=== PATIENT | male | born 1980 | race Caucasian/White ===

== ENCOUNTER 2021-03-05 09:18 | Emergency (ER) | payer OTHER ==
[~2021-03-05] VITALS: Ht 182.9 cm; Wt 152.2 kg
[2021-03-05] MEDS ORDERED: ONDANSETRON PF 4 MG/2 ML VIAL. IV ONE (09:30)
[2021-03-05] MEDS ORDERED: IV NORMAL SALINE 1000ML BAG 1,000 ML IV ONE ×2 (09:30→10:15)
[2021-03-05 09:37] LABS: BASO # 0.1 x10^3/uL (0.0-0.2); BASO % 1 % (0-3); EOS # 0.2 x10^3/uL (0.0-0.7); EOS % 2 % (0-3); HEMATOCRIT 45.6 % (39.0-53.0); HEMOGLOBIN 16.2 g/dL (13.0-17.5); LYMPH # 1.5 x10^3/uL (1.0-4.8); LYMPH % 15 % (24-48); MEAN CORPUSCULAR HEMOGLOBIN 36 pg (25-35); MEAN CORPUSCULAR HGB CONC 35 g/dL (31-37); MEAN CORPUSCULAR VOLUME 101 fL (79-100); MONO # 0.9 x10^3/uL (0.0-1.1); MONO % 10 % (0-9); NEUT # 7.1 x10^3/uL (1.8-7.7); NEUT % 73 % (31-73); PLATELET COUNT 222 x10^3/uL (140-400); RED BLOOD COUNT 4.51 x10^6/uL (4.30-5.70); RED CELL DISTRIBUTION WIDTH 12.4 % (11.5-14.5); WHITE BLOOD COUNT 9.7 x10^3/uL (4.0-11.0)
--- NOTE | 2021-03-05 09:43 | ED.ADGEN ---
Past Medical History Past Medical History: Depression Additional Past Medical Histor: Obesity Additional Past Surgical Histo: R bicep repair, hernia repair Smoking Status: Never Smoker Alcohol Use: Occasionally Drug Use: None Social History Narrative: Lives with his father, going for divorce General Adult EDM: Chief Complaint: DIZZY/LIGHT HEADED HPI: HPI: Patient is a 40 year old male who presents to the emergency department with complaints of nausea and vomiting this morning. Patient reports he had been feeling nauseated this morning and had just come down to the OR when all of a sudden he began forcefully vomiting. Patient states he vomited multiple times until he was dry heaving. He denies any chest pain, shortness of breath, headache, vision changes, abdominal pain, diarrhea, fever, body aches, or fatigue. Patient reports that he has had some decreased sensation in his feet for several months. He does not have a primary care doctor. Patient reports noticing increased thirst and urination recently he denies any polyphagia. Patient reports that he is currently going through a divorce and living with his father, he states that his eating habits have become more healthy since he moved in with his father recently. Patient states he does not have a primary care doctor, he does take medication for depression but denies taking medication for any other health problems. In the past he has had some intermittent high blood pressure but has never taken anything for it. He denies any previous diagnosis of diabetes. The patient currently denies any pain. Review of Systems: Review of Systems: Complete ROS is negative unless otherwise noted in HPI. Current Medications: Current Medications Medications (Trade) Dose Ordered Sig/Priti Start Time Stop Time Status Last Admin Dose Admin Hydralazine HCl (Apresoline Inj) 10 mg 1X ONCE 03/05/21 09:45 03/05/21 09:46 DC 03/05/21 10:15 10 MG Labetalol HCl (Normodyne Iv Push) 10 mg 1X ONCE 03/05/21 12:30 03/05/21 12:31 DC 03/05/21 12:34 10 MG Ondansetron HCl (Zofran) 4 mg 1X ONCE 03/05/21 09:30 03/05/21 09:34 DC 03/05/21 09:35 4 MG Sodium Chloride 1,000 ml @ 1,000 mls/hr 1X ONCE 03/05/21 10:15 03/05/21 11:14 DC 03/05/21 10:14 1,000 MLS/HR Allergies: Allergies: Allergies Coded Allergies Type Severity Reaction Last Updated Verified Sulfa (Sulfonamide Antibiotics) Allergy Intermediate 03/05/21 Yes Physical Exam: PE: See Above Constitutional: Well developed, well nourished, no acute distress, non-toxic appearance, obese. [] HENT: Normocephalic, atraumatic, bilateral external ears normal, nose normal. [] Eyes: PERRLA, EOMI, conjunctiva normal, no discharge. [] Neck: Normal range of motion, no stridor. [] Cardiovascular:Heart rate regular tachycardic rhythm, no murmur Lungs & Thorax: Respirations even and unlabored, no retractions, no respiratory distress, lungs CTA Abdomen: soft, no tenderness, no palpable mass, no pulsatile Skin: Warm, dry, no erythema, no rash; L great toe: wound to plantar surface with cracked yellow skin, no drainage, no surrounding redness or warmth [] Extremities: No cyanosis, ROM intact, no edema. [] Neurologic: Alert and oriented X 3, normal motor, no focal deficits noted. [] Psychologic: Affect normal, judgement normal, mood normal. [] Current Patient Data: Labs: Laboratory Tests Test 03/05/21 08:57 03/05/21 09:25 03/05/21 10:13 03/05/21 11:08 Glucose (Fingerstick) 416 mg/dL (70-99) H 340 mg/dL (70-99) H 321 mg/dL (70-99) H White Blood Count 9.7 x10^3/uL (4.0-11.0) Red Blood Count 4.51 x10^6/uL (4.30-5.70) Hemoglobin 16.2 g/dL (13.0-17.5) Hematocrit 45.6 % (39.0-53.0) Mean Corpuscular Volume 101 fL (79-100) H Mean Corpuscular Hemoglobin 36 pg (25-35) H Mean Corpuscular Hemoglobin Concent 35 g/dL (31-37) Red Cell Distribution Width 12.4 % (11.5-14.5) Platelet Count 222 x10^3/uL (140-400) Neutrophils (%) (Auto) 73 % (31-73) Lymphocytes (%) (Auto) 15 % (24-48) L Monocytes (%) (Auto) 10 % (0-9) H Eosinophils (%) (Auto) 2 % (0-3) Basophils (%) (Auto) 1 % (0-3) Neutrophils # (Auto) 7.1 x10^3/uL (1.8-7.7) Lymphocytes # (Auto) 1.5 x10^3/uL (1.0-4.8) Monocytes # (Auto) 0.9 x10^3/uL (0.0-1.1) Eosinophils # (Auto) 0.2 x10^3/uL (0.0-0.7) Basophils # (Auto) 0.1 x10^3/uL (0.0-0.2) Sodium Level 135 mmol/L (136-145) L Potassium Level 4.3 mmol/L (3.5-5.1) Chloride Level 98 mmol/L (98-107) Carbon Dioxide Level 25 mmol/L (21-32) Anion Gap 12 (6-14) Blood Urea Nitrogen 11 mg/dL (8-26) Creatinine 1.1 mg/dL (0.7-1.3) Estimated GFR (Cockcroft-Gault) 73.4 BUN/Creatinine Ratio 10 (6-20) Glucose Level 384 mg/dL (70-99) H Calcium Level 9.0 mg/dL (8.5-10.1) Magnesium Level 1.9 mg/dL (1.8-2.4) Total Bilirubin 0.5 mg/dL (0.2-1.0) Aspartate Amino Transferase (AST) 65 U/L (15-37) H Alanine Aminotransferase (ALT) 96 U/L (16-63) H Alkaline Phosphatase 71 U/L (46-116) Creatine Kinase 118 U/L (39-308) Creatine Kinase MB (Mass) 1.1 ng/mL (0.0-3.6) Creatine Kinase MB Relative Index 0.9 % (0-4) Troponin I Quantitative < 0.017 ng/mL (0.000-0.055) Total Protein 7.6 g/dL (6.4-8.2) Albumin 3.3 g/dL (3.4-5.0) L Albumin/Globulin Ratio 0.8 (1.0-1.7) L Lipase 150 U/L (73-393) Acetone Level Neg (NEG) Test 03/05/21 12:28 Glucose (Fingerstick) 284 mg/dL (70-99) H Laboratory Tests 03/05/21 09:25 Laboratory Tests 03/05/21 09:25 Vital Signs: Vital Signs Date Time Temp Pulse Resp B/P (MAP) Pulse Ox O2 Delivery O2 Flow Rate FiO2 03/05/21 13:13 97 161/99 (119) 97 Room Air 03/05/21 09:18 98.5 24 98.5 EKG: EK-sinus tachycardia, rate 113, leftward axis, no STEMI, read by myself and Dr. Wan [] Heart Score: C/O Chest Pain: No Risk Scores: Score 0 - 3: 2.5% MACE over next 6 weeks - Discharge Home Score 4 - 6: 20.3% MACE over next 6 weeks - Admit for Clinical Observation Score 7 - 10: 72.7% MACE over next 6 weeks - Early Invasive Strategies Radiology/Procedures: Radiology/Procedures: PROCEDURE: CHEST AP ONLY INDICATION: Reason: chest pain / Spl. Instructions: / History: COMPARISON: None. FINDINGS: Single view of chest obtained. Cardiomediastinal silhouette is unremarkable. Linear opacity left lung base could be secondary to atelectasis. No evidence of pneumothorax. IMPRESSION: * Linear atelectasis at the left lung base without evidence of pneumothorax. Electronically signed by: Emery Hernandez MD (03/05/2021 10:09 AM) [id number][] Course & Med Decision Making: Course & Med Decision Making Pertinent Labs and Imaging studies reviewed. (See chart for details) Patient is a 38-year-old male who presents emergency department for evaluation of sudden onset of nausea and vomiting. Patient was needed blood sugar of 416 on arrival. Work-up included labs, chest x-ray, EKG. CBC is unremarkable; CMP revealed a blood glucose of 384, sodium 135, AST 65, ALT of 96 no elevation in anion gap, acetone was negative. They are unable to collect a urine specimen in the emergency department. Patient's blood pressure history of 10 mg of hydralazine with little response so 10 mg labetalol was given. The patient's blood pressure decreased and his heart rate dropped into the 90s. Patient received a total of 2 L of normal saline in the emergency department. His last blood sugar check was 284. I put in a consult for the hospitalist to evaluate the patient. 1240- Dr. Guerrero at bedside to evaluate patient. 1300- Per Dr. Guerrero I will prescribe 1000 mg of metformin BID and amlodipine 10 mg PO at bedtime to the patient. 1315-patient called his primary care doctor and establish an appointment for himself to be seen in the office tomorrow morning at 1140. I encouraged the patient to take his medications as prescribed, check his blood sugars and blood pressures regularly, follow the diet instructions provided and follow-up with his primary care doctor tomorrow as planned. I also instructed the patient to follow-up with wound care for further evaluation of the wound on the bottom of his left great toe. Patient was instructed to return to the ER if symptoms worsened or fever develop. Patient verbalized an understanding of home care, medications, follow-up, and return to ED instructions and was in agreement with the plan of care. Telmaon Disclaimer: Anay Disclaimer: This electronic medical record was generated, in whole or in part, using a voice recognition dictation system. Departure Departure Impression: Primary Impression: Hyperglycemia Additional Impressions: Type 2 diabetes mellitus Hypertension Unspecified open wound of left great toe without damage to nail, initial en counter Disposition: HOME / SELF CARE / HOMELESS Condition: STABLE Referrals: DEL DAVID (PCP) Patient Instructions: Diabetes Meal Planning Guide, Diabetes and Foot Care, Form - Daily Diabetes Record, Hypertension, [id number], Type 2 Diabetes Mellitus, Adult, [id number], Wound Care, [id number] Additional Instructions: Fill the prescriptions and use them as directed. Check your blood sugar before meals and at bedtime, purchase a glucometer for personal use. Follow the diet instructions provided. Follow up with your primary care doctor in 1-2 days. Follow up with wound care, Dr. Chauhan, for further evaluation of your foot wound. Return to the ER if symptoms worsen or fever develops. Scripts Amlodipine Besylate (AMLODIPINE BESYLATE) 10 Mg Tablet 10 MG PO HS for 30 Days, #30 TAB 1 Refill Prov: BERNADETTE RANDOLPH APRN 03/05/21 Metformin Hcl (METFORMIN HCL) 1,000 Mg Tablet 1000 MG PO BIDWMEALS for 30 Days, #60 TAB 1 Refill Prov: BERNADETTE RANDOLPH APRN 03/05/21 Attending Co-Sign The patient was seen and interviewed as well as examined at the bedside. The chart was reviewed. The case was discussed. Agree with the plan of care. Problem Qualifiers Additional Impressions: Type 2 diabetes mellitus Diabetes mellitus fpc insulin use: without land law examiner use Diabetes mellitus complication status: with hyperglycemia Qualified Codes: E11.65 - Type 2 diabetes mellitus with hyperglycemia Hypertension Hypertension type: essential hypertension Qualified Codes: I10 - Essential (primary) hypertension BERNADETTE RANDOLPH APRN Mar 05, 2021 09:43 EDUARDO WAN DO Mar 05, 2021 15:11
[2021-03-05] MEDS ORDERED: hydrALAZINE 20 MG/ML VIAL. IVP ONE (09:45)
[2021-03-05 09:52] LABS: CREATININE 1.1 mg/dL (0.7-1.3); GFR 73.4; POTASSIUM 4.3 mmol/L (3.5-5.1)
[2021-03-05 09:58] LABS: ALBUMIN 3.3 g/dL (3.4-5.0); ALBUMIN/GLOBULIN RATIO 0.8 (1.0-1.7); MAGNESIUM 1.9 mg/dL (1.8-2.4); TOTAL BILIRUBIN 0.5 mg/dL (0.2-1.0); TOTAL PROTEIN 7.6 g/dL (6.4-8.2)
--- NOTE | 2021-03-05 10:12 | RAD ---
INDICATION: Reason: chest pain / Spl. Instructions: / History: COMPARISON: None. FINDINGS: Single view of chest obtained. Cardiomediastinal silhouette is unremarkable. Linear opacity left lung base could be secondary to atelectasis. No evidence of pneumothorax. IMPRESSION: * Linear atelectasis at the left lung base without evidence of pneumothorax. Electronically signed by: Emery Hernandez MD (03/05/2021 10:09 AM) [id number]
[2021-03-05] MEDS ORDERED: LABETALOL 20 MG/4 ML DISP.SYRIN. IVP ONE (12:30)
[2021-03-05] MEDS ORDERED: AMLO-187 PO (13:00)
[2021-03-05] MEDS ORDERED: METF10007 PO (13:00)
[2021-03-05 13:13] VITALS: BP 161/99
--- NOTE | 2021-03-05 13:59 | EKG ---
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
--- NOTE | 2021-03-05 15:35 | PDOC2 ---
Date of Service: DATE: 03/05/21 TIME: 15:32 Chief Complaint: Chief Complain: Nausea vomiting History of Present Illness: HPI: Past Medical History: Depression Additional Past Medical Histor: Obesity Additional Past Surgical Histo: R bicep repair, hernia repair Smoking Status: Never Smoker Alcohol Use: Occasionally Drug Use: None Social History Narrative: Lives with his father, going for divorce Patient is a 40 year old male who presents to the emergency department with complaints of nausea and vomiting this morning. Patient reports he had been feeling nauseated this morning and had just come down to the OR when all of a sudden he began forcefully vomiting. Patient states he vomited multiple times until he was dry heaving. He denies any chest pain, shortness of breath, headache, vision changes, abdominal pain, diarrhea, fever, body aches, or fatigue. Patient reports that he has had some decreased sensation in his feet for several months. He does not have a primary care doctor. Patient reports noticing increased thirst and urination recently he denies any polyphagia. Patient reports that he is currently going through a divorce and living with his father, he states that his eating habits have become more healthy since he moved in with his father recently. Patient states he does not have a primary care doctor, he does take medication for depression but denies taking medication for any other health problems. In the past he has had some intermittent high blood pressure but has never taken anything for it. He denies any previous diagnosis of diabetes. The patient currently denies any pain. Past Medical/Surgical History: PMH/PSH: Past Medical History: Depression, Obesity, R bicep repair, hernia repair Allergies: Allergies: Coded Allergies: Sulfa (Sulfonamide Antibiotics) (Verified Allergy, Intermediate, 03/05/21) Family History: Family History: Reviewed with no relevant findings Social History: Social Hisoty: Smoking Status: Never Smoker Alcohol Use: Occasionally Drug Use: None Social History Narrative: Lives with his father, going for divorce Current Medications: Current Medications Current Medications Sodium Chloride 1,000 ml @ 1,000 mls/hr 1X ONCE IV Last administered on 03/05/21at 09:36; Start 03/05/21 at 09:30; Stop 03/05/21 at 10:29; Status DC Ondansetron HCl (Zofran) 4 mg 1X ONCE IV Last administered on 03/05/21at 09:35; Start 03/05/21 at 09:30; Stop 03/05/21 at 09:34; Status DC Hydralazine HCl (Apresoline Inj) 10 mg 1X ONCE IVP Last administered on 03/05/21at 10:15; Start 03/05/21 at 09:45; Stop 03/05/21 at 09:46; Status DC Sodium Chloride 1,000 ml @ 1,000 mls/hr 1X ONCE IV Last administered on 03/05/21at 10:14; Start 03/05/21 at 10:15; Stop 03/05/21 at 11:14; Status DC Labetalol HCl (Normodyne Iv Push) 10 mg 1X ONCE IVP Last administered on 03/05/21at 12:34; Start 03/05/21 at 12:30; Stop 03/05/21 at 12:31; Status DC Active Scripts Active Amlodipine Besylate 10 Mg Tablet 10 Mg PO HS 30 Days Metformin Hcl 1,000 Mg Tablet 1,000 Mg PO BIDWMEALS 30 Days Reported No Known Medications Prior To Admisstion (Info) Each 1 Each ROS: Review of Systems Review of System REVIEW OF SYSTEMS: GENERAL: Denies weakness SKIN: No bruising, hair changes or rashes. EYES: No blurred, double or loss of vision. NOSE AND THROAT: No history of nosebleeds, hoarseness or sore throat. HEART: No history of palpitations, chest pain or shortness of breath on exertion. LUNGS: Denies cough, hemoptysis, wheezing or shortness of breath. GASTROINTESTINAL: Denies changes in appetite, nausea, vomiting, diarrhea or constipation. GENITOURINARY: No history of frequency, urgency, hesitancy or nocturia. NEUROLOGIC: Denies history of numbness, tingling, or tremor. PSYCHIATRIC: No history of panic, anxiety or depression. ENDOCRINE: No history of heat or cold intolerance, polyuria or polydipsia. EXTREMITIES: Denies joint pain, pain on walking or stiffness. Physical Exam: Vital Signs: Vital Signs Date Time Temp Pulse Resp B/P (MAP) Pulse Ox O2 Delivery O2 Flow Rate FiO2 03/05/21 13:13 97 161/99 (119) 97 Room Air 03/05/21 09:18 98.5 24 98.5 Physcial Exam: GEN: No apparent distress. Alert and oriented HEENT: Normal cephalic, atraumatic, external auditory canals are patent EYES: Extraocular muscles are intact, pupil are equally round and reactive to light and accommodation MUSCULOSKELETAL: Well developed , well nourished, good range of motion ENDOCRINE: No thyromegaly was palpated LYMPHATICS: No cervical chain or axillary nodes were noted HEMATOPOIETIC: No bruising NECK: Supple, no JVD, no thyromegaly was noted LUNGS: Clear to auscultation in all lung dumont without rhonchi or wheezing HEART: RRR, S!, S2 present. Peripheral pulses intact, no obvious murmurs noted ABDOMEN: Soft, nontender. Positive bowel sounds, no organomegaly, normal bowel sounds EXTREMITIES: Without clubbing, cyanosis, or edema. Pedal pulses intact. Negative Homans sign NEUROLOGIC: Normal speech and tone. A&O x 3, moves all extremities, no obvious focal deficits PSYCHIATRIC: Normal affect, normal mood. Stable SKIN: No ulcerations or rashes, good skin turgor, no jaundice VASCULAR: Good capillary refill, neurovascular bundle appears to be intact Labs: Labs: Laboratory Tests Test 03/05/21 08:57 03/05/21 09:25 03/05/21 10:13 03/05/21 11:08 Glucose (Fingerstick) 416 mg/dL (70-99) 340 mg/dL (70-99) 321 mg/dL (70-99) White Blood Count 9.7 x10^3/uL (4.0-11.0) Red Blood Count 4.51 x10^6/uL (4.30-5.70) Hemoglobin 16.2 g/dL (13.0-17.5) Hematocrit 45.6 % (39.0-53.0) Mean Corpuscular Volume 101 fL (79-100) Mean Corpuscular Hemoglobin 36 pg (25-35) Mean Corpuscular Hemoglobin Concent 35 g/dL (31-37) Red Cell Distribution Width 12.4 % (11.5-14.5) Platelet Count 222 x10^3/uL (140-400) Neutrophils (%) (Auto) 73 % (31-73) Lymphocytes (%) (Auto) 15 % (24-48) Monocytes (%) (Auto) 10 % (0-9) Eosinophils (%) (Auto) 2 % (0-3) Basophils (%) (Auto) 1 % (0-3) Neutrophils # (Auto) 7.1 x10^3/uL (1.8-7.7) Lymphocytes # (Auto) 1.5 x10^3/uL (1.0-4.8) Monocytes # (Auto) 0.9 x10^3/uL (0.0-1.1) Eosinophils # (Auto) 0.2 x10^3/uL (0.0-0.7) Basophils # (Auto) 0.1 x10^3/uL (0.0-0.2) Sodium Level 135 mmol/L (136-145) Potassium Level 4.3 mmol/L (3.5-5.1) Chloride Level 98 mmol/L (98-107) Carbon Dioxide Level 25 mmol/L (21-32) Anion Gap 12 (6-14) Blood Urea Nitrogen 11 mg/dL (8-26) Creatinine 1.1 mg/dL (0.7-1.3) Estimated GFR (Cockcroft-Gault) 73.4 BUN/Creatinine Ratio 10 (6-20) Glucose Level 384 mg/dL (70-99) Calcium Level 9.0 mg/dL (8.5-10.1) Magnesium Level 1.9 mg/dL (1.8-2.4) Total Bilirubin 0.5 mg/dL (0.2-1.0) Aspartate Amino Transf (AST/SGOT) 65 U/L (15-37) Alanine Aminotransferase (ALT/SGPT) 96 U/L (16-63) Alkaline Phosphatase 71 U/L (46-116) Creatine Kinase 118 U/L (39-308) Creatine Kinase MB (Mass) 1.1 ng/mL (0.0-3.6) Creatine Kinase MB Relative Index 0.9 % (0-4) Troponin I Quantitative < 0.017 ng/mL (0.000-0.055) Total Protein 7.6 g/dL (6.4-8.2) Albumin 3.3 g/dL (3.4-5.0) Albumin/Globulin Ratio 0.8 (1.0-1.7) Lipase 150 U/L (73-393) Acetone Level Neg (NEG) Test 03/05/21 12:28 Glucose (Fingerstick) 284 mg/dL (70-99) Laboratory Tests Test 03/05/21 08:57 03/05/21 09:25 03/05/21 10:13 03/05/21 11:08 Glucose (Fingerstick) 416 mg/dL (70-99) 340 mg/dL (70-99) 321 mg/dL (70-99) White Blood Count 9.7 x10^3/uL (4.0-11.0) Red Blood Count 4.51 x10^6/uL (4.30-5.70) Hemoglobin 16.2 g/dL (13.0-17.5) Hematocrit 45.6 % (39.0-53.0) Mean Corpuscular Volume 101 fL (79-100) Mean Corpuscular Hemoglobin 36 pg (25-35) Mean Corpuscular Hemoglobin Concent 35 g/dL (31-37) Red Cell Distribution Width 12.4 % (11.5-14.5) Platelet Count 222 x10^3/uL (140-400) Neutrophils (%) (Auto) 73 % (31-73) Lymphocytes (%) (Auto) 15 % (24-48) Monocytes (%) (Auto) 10 % (0-9) Eosinophils (%) (Auto) 2 % (0-3) Basophils (%) (Auto) 1 % (0-3) Neutrophils # (Auto) 7.1 x10^3/uL (1.8-7.7) Lymphocytes # (Auto) 1.5 x10^3/uL (1.0-4.8) Monocytes # (Auto) 0.9 x10^3/uL (0.0-1.1) Eosinophils # (Auto) 0.2 x10^3/uL (0.0-0.7) Basophils # (Auto) 0.1 x10^3/uL (0.0-0.2) Sodium Level 135 mmol/L (136-145) Potassium Level 4.3 mmol/L (3.5-5.1) Chloride Level 98 mmol/L (98-107) Carbon Dioxide Level 25 mmol/L (21-32) Anion Gap 12 (6-14) Blood Urea Nitrogen 11 mg/dL (8-26) Creatinine 1.1 mg/dL (0.7-1.3) Estimated GFR (Cockcroft-Gault) 73.4 BUN/Creatinine Ratio 10 (6-20) Glucose Level 384 mg/dL (70-99) Calcium Level 9.0 mg/dL (8.5-10.1) Magnesium Level 1.9 mg/dL (1.8-2.4) Total Bilirubin 0.5 mg/dL (0.2-1.0) Aspartate Amino Transf (AST/SGOT) 65 U/L (15-37) Alanine Aminotransferase (ALT/SGPT) 96 U/L (16-63) Alkaline Phosphatase 71 U/L (46-116) Creatine Kinase 118 U/L (39-308) Creatine Kinase MB (Mass) 1.1 ng/mL (0.0-3.6) Creatine Kinase MB Relative Index 0.9 % (0-4) Troponin I Quantitative < 0.017 ng/mL (0.000-0.055) Total Protein 7.6 g/dL (6.4-8.2) Albumin 3.3 g/dL (3.4-5.0) Albumin/Globulin Ratio 0.8 (1.0-1.7) Lipase 150 U/L (73-393) Acetone Level Neg (NEG) Test 03/05/21 12:28 Glucose (Fingerstick) 284 mg/dL (70-99) Images: Images No recent images to review Assessment/Plan Assessment/Plan New onset diabetes, uncontrolled and undiagnosed Hypertensive urgency Hyperglycemia Peripheral neuropathy Left great toe wound, chronic Macrocytosis Mild transaminitis We will have patient have close follow-up with his PCP for management of his diabetes and hypertension. Will start patient on Metformin 1000 twice daily and amlodipine 10 mg at bedtime. Needs close follow-up for wound care. SEGUNDO MELÉNDEZ MD Mar 05, 2021 15:35
== END 2021-03-05 13:40 | disposition home or self-care (01) ==
LOC: ER 09:18
DX: S91.102A Unspecified open wound of left great toe without damage to nail, initial encounter (principal); E11.65 Type 2 diabetes mellitus with hyperglycemia; I10 Essential (primary) hypertension; Z79.4 Long term (current) use of insulin; Z88.2 Allergy status to sulfonamides; X58.XXXA Exposure to other specified factors, initial encounter; Y93.89 Activity, other specified; Y92.89 Other specified places as the place of occurrence of the external cause; Y99.8 Other external cause status
CPT/HCPCS: 36415; 71045; 80053; 82010; 82553; 82962; 83036; 83690; 83735; 84484; 85025; 93005; 96361; 96374; 96375; 99285; J0360; J2405; J3490; J7030

== ENCOUNTER → 2021-03-21 | Outpatient (CLI) | payer OTHER ==
[2021-03-05 13:13] VITALS: BP 161/99
[~2021-03-21] MED LIST: AMLO-187 PO; METF10007 PO
--- NOTE | 2021-03-21 08:13 | RAD ---
EXAM: Lower extremity arterial Doppler sonogram with ankle-brachial indices (ARLENE). HISTORY: Nonhealing ulcer of the left great toe. Peripheral vascular disease. Atherosclerosis. TECHNIQUE: Doppler sonographic evaluation of the lower extremities was performed and pressure reading s were assessed. FINDINGS: Right brachial pressure: 144 mmHg Left brachial pressure: 145 mmHg Right ankle pressure (dorsalis pedis): 166 mmHg Right ankle pressure (posterior tibial): 156 mmHg Right ARLENE: 1.1 Left ankle pressure (posterior tibial): 159 mmHg Left ankle pressure (dorsalis pedis): 158 mmHg Left ARLENE: 1.1 There are normal triphasic waveforms throughout the left lower extremity arteries. There is mild rela tive elevation of the peak systolic velocity within the distal left posterior tibial artery. However, this remains within normal limits. IMPRESSION: 1. Normal ankle-brachial indices. 2. No evidence of severe stenosis or occlusion involving the left lower extremity arteries. Electronically signed by: Beckie Aguilera MD (03/21/2021 8:10 AM) [id number]
== END ==
LOC: US 06:41
PROVIDERS: ATTEND Preventive Medicine Undersea and Hyperbaric Medicine
DX: L97.529 Non-pressure chronic ulcer of other part of left foot with unspecified severity (principal)
CPT/HCPCS: 93922; 93926

== ENCOUNTER 2021-12-31 08:50 | Inpatient (IN) | payer OTHER ==
[~2021-12-31] VITALS: Ht 182.9 cm; Wt 157.6 kg
[2021-12-31] MEDS ORDERED: ALPR0.5T PO (10:09)
[2021-12-31 10:45] VITALS: BP 137/86
--- NOTE | 2021-12-31 10:55 | PDOC2 ---
CONSULT Date of Service Date of Service DATE: 12/31/21 TIME: 10:39 Reason for Consult Reason for Consult: DFU Referring Physician Referring Physician: Dr. Guerrero Identification/Chief Complaint Chief Complaint DFU Source Source: Patient History of Present Illness Reason for Visit: This a pleasant 41-year-old male with history of diabetes, controlled at home with Metformin based on home medication list. He was sent over here by wound care. His last A1c was 10.0 in February 2021. He presents with a left great toe diabetic foot ulcer. He reports its been present for approximately 2 months, started as a punctate blood blister, and has progressively worsened, especially after his recent travel to [place] with lots of walking and where he went swimming 2 weeks ago, at which point his toe became more red and swollen and macerated. He has not had much pain until [facility] visit today where they probed the wound. RN mentioned they think they probed to bone. He does regularly follow at wound care center. He denies having any purulent drainage, he does report some serous drainage. He reports associated swelling to his left foot and lower leg. He had a normal duplex in March 2021 with normal ABIs. He denies any claudication symptoms. He denies smoking history. He denies any prior foot surgeries or circulation issues. He reports he had a wound on same toe last year that healed with wound care. He does have diabetic shoes he wears regularly. Past Medical History Past Medical History Diabetes Current Medications Current Medications Current Medications Morphine Sulfate (Morphine Sulfate) 2 mg PRN Q2HR PRN IV PAIN; Start 12/31/21 at 10:00 Active Scripts Active Amlodipine Besylate 10 Mg Tablet 10 Mg PO HS 30 Days Metformin Hcl 1,000 Mg Tablet 1,000 Mg PO BIDWMEALS 30 Days Reported Xanax (Alprazolam) 0.5 Mg Tablet 1 Tab PO DAILY PRN No Known Medications Prior To Admisstion (Info) Each 1 Each MC Allergies Allergies: Coded Allergies: Sulfa (Sulfonamide Antibiotics) (Verified Allergy, Intermediate, 03/05/21) ROS General: No: Chills (Fever) Gastrointestinal: No Nausea, No Vomiting, No Diarrhea Musculoskeletal: Yes Gait Disturbance, Yes Pain In: (L great toe) Skin: Yes Dry Skin, Yes Rash, Yes Skin Lesion Changes Physical Exam General: Alert, Oriented X3, Cooperative, No acute distress Lungs: Normal air movement (room air, no distress) Heart: Regular rate Extremities: Normal pulses (Normal DP and PT bilaterally. ), Other (No right foot wounds or erythema. Left foot with ecchymosis to nail bed of second toe, no drianage. First toe with distal part all macerated circumferentially with boggy tissue medially and plantar ulcer with clean wound bed on plantar surface. There is no drainage extracted. Attempted to probe ulcer and under nail bed but this was too painful for pt and not tolerated. There is no fluctuance or draiange, there is erythema extending to forefoot. He has 1+swelling RLE) Skin: Other (L great toe wound as in described above. ) Neuro: Normal speech, Strength at 5/5 X4 ext Psych/Mental Status: Mental status NL, Mood NL Labs Labs None to review - have been ordered. Images Images Reviewed art duplex and ARLENE's from 03/2021 Assessment/Plan Assessment/Plan Diabetes, uncontrolled DFU, left great toe Pleasant 41-year-old diabetic male with rt great toe ulcer x2 months with recent flare up. Will order some labs, consult ID for abx managment and get MRI. The wound does not show any signs indicating need for urgent surgical intervention. I discussed with him concern for osteomyelitis and treatment options. He understands importance of offloading and better diabetes control for wound healing. He has palpable pedal pulses and had normal duplex in March 2021, therefore do not think further arterial imaging is necessary at this time. Will await MRI results for further surgical decision making. SHADE KRISHNAN Dec 31, 2021 10:55
[2021-12-31] MEDS: MORPHINE SULFATE 2 MG/ML INJ. IV PRN ×2 (11:00→17:51)
[2021-12-31 12:09] LABS: BASO # 0.1 x10^3/uL (0.0-0.2); BASO % 1 % (0-3); EOS # 0.1 x10^3/uL (0.0-0.7); EOS % 1 % (0-3); HEMATOCRIT 43.1 % (39.0-53.0); HEMOGLOBIN 15.2 g/dL (13.0-17.5); LYMPH # 1.4 x10^3/uL (1.0-4.8); LYMPH % 11 % (24-48); MEAN CORPUSCULAR HEMOGLOBIN 36 pg (25-35); MEAN CORPUSCULAR HGB CONC 35 g/dL (31-37); MEAN CORPUSCULAR VOLUME 102 fL (79-100); MONO # 1.9 x10^3/uL (0.0-1.1); MONO % 16 % (0-9); NEUT # 8.9 x10^3/uL (1.8-7.7); NEUT % 72 % (31-73); PLATELET COUNT 285 x10^3/uL (140-400); RED BLOOD COUNT 4.23 x10^6/uL (4.30-5.70); RED CELL DISTRIBUTION WIDTH 12.9 % (11.5-14.5); WHITE BLOOD COUNT 12.5 x10^3/uL (4.0-11.0)
[2021-12-31 12:19] LABS: CALCIUM 8.9 mg/dL (8.5-10.1); GFR 81.6; POTASSIUM 3.7 mmol/L (3.5-5.1)
[2021-12-31] MEDS ORDERED: GADOTERATE 7.5 MMOL/15ML VIAL. IVP ONE (12:30)
[2021-12-31] MEDS ORDERED: MORPHINE SULFATE 2 MG/ML INJ. IV PRN (13:45)
[2021-12-31] MEDS ORDERED: LORazepam 0.5 MG TABLET PO PRN (13:45)
[2021-12-31] MEDS ORDERED: diphenhydrAMINE HCL 25 MG CAPSULE PO PRN ×2 (13:45)
[2021-12-31] MEDS ORDERED: DOCUSATE SODIUM 100 MG CAPSULE. PO PRN (13:45)
[2021-12-31] MEDS ORDERED: SENNOSIDES 8.6 MG TABLET PO PRN (13:45)
[2021-12-31] MEDS ORDERED: diphenhydrAMINE 50 MG/ML VIAL IVP PRN (13:45)
[2021-12-31] MEDS ORDERED: oxyCODONE/APAP 5/325 1 TAB TABLET PO PRN (13:45)
[2021-12-31] MEDS ORDERED: PROCHLORPERAZINE 10 MG/2 ML VIAL. IV PRN (13:45)
[2021-12-31] MEDS ORDERED: ONDANSETRON PF 4 MG/2 ML VIAL. IVP PRN (13:45)
[2021-12-31] MEDS ORDERED: ZOLPIDEM 5 MG TABLET. PO PRN (13:45)
[2021-12-31] MEDS ORDERED: ACETAMINOPHEN 325 MG TABLET. PO PRN (13:45)
[2021-12-31] MEDS ORDERED: DEXTROSE 50% 25 GM / 50ML DISP.SYRIN. IV PRN (13:45)
--- NOTE | 2021-12-31 13:48 | PDOC1 ---
History and Physical Date of Service: DOS: DATE: 12/31/21 TIME: 13:38 Chief Complaint: Chief Complain: Diabetic foot ulcer History of Present Illness: HPI: Patient is a 41-year-old male with past medical history of diabetes myelitis on Metformin who was admitted from wound clinic due to left first digit diabetic foot ulcer. Last hemoglobin A1c in February 2021 was 10. Patient had a foot ulcer a year ago that healed well but approximately 2 months ago patient developed a blister and progressively worsened. Apparently he did go to [place] and where he did a lot of walking and actually went swimming. At this point the wound became more red and swollen and actually macerated. The wound was probed and there was suspicion that they were touching bone. Denies any fevers, nausea vomiting, chest pain, dysuria, smoking, claudication symptoms, purulent drainage or active bleeding from the wound. He reports associated swelling to his left foot and lower leg. He had a normal duplex in March 2021 with normal ABIs. Past Medical/Surgical History: PMH/PSH: Diabetes mellitus type 2, hypertension, morbid obesity Allergies: Allergies: Coded Allergies: Sulfa (Sulfonamide Antibiotics) (Verified Allergy, Intermediate, 03/05/21) Family History: Family History: Reviewed with no relative findings in the chart Social History: Social History: Denies alcohol, tobacco or drug abuse Current Medications: Current Medications Current Medications Morphine Sulfate (Morphine Sulfate) 2 mg PRN Q2HR PRN IV PAIN Last administered on 12/31/21at 11:00; Start 12/31/21 at 10:00 Gadoterate Meglumine (Clariscan) 30 ml 1X ONCE IVP ; Start 12/31/21 at 12:30; Stop 12/31/21 at 12:40; Status DC Active Scripts Active Amlodipine Besylate 10 Mg Tablet 10 Mg PO HS 30 Days Metformin Hcl 1,000 Mg Tablet 1,000 Mg PO BIDWMEALS 30 Days Reported Xanax (Alprazolam) 0.5 Mg Tablet 1 Tab PO DAILY PRN No Known Medications Prior To Admisstion (Info) Each 1 Each ROS: Review of Systems Review of System REVIEW OF SYSTEMS: GENERAL: Denies weakness SKIN: No bruising, hair changes or rashes. EYES: No blurred, double or loss of vision. NOSE AND THROAT: No history of nosebleeds, hoarseness or sore throat. HEART: No history of palpitations, chest pain or shortness of breath on exertion. LUNGS: Denies cough, hemoptysis, wheezing or shortness of breath. GASTROINTESTINAL: Denies changes in appetite, nausea, vomiting, diarrhea or constipation. GENITOURINARY: No history of frequency, urgency, hesitancy or nocturia. NEUROLOGIC: Denies history of numbness, tingling, or tremor. PSYCHIATRIC: No history of panic, anxiety or depression. ENDOCRINE: No history of heat or cold intolerance, polyuria or polydipsia. EXTREMITIES: Left diabetic foot ulcer Physical Exam: Vital Signs: Vital Signs Date Time Temp Pulse Resp B/P (MAP) Pulse Ox O2 Delivery O2 Flow Rate FiO2 12/31/21 11:00 18 Room Air Physcial Exam: General: Well developed, well nourished, no acute distress, well appearing HEENT: Pupils equally round and reactive to light, EOMI, no discharge, normal conjunctiva Neck: Supple, no nuchal rigidity, no JVD, trachea midline, no tenderness Cardiac: RRR, no murmurs, no gallops, no rubs Chest/Lungs: CTAB, no wheeze, no rhonchi, no crackles Abdomen: soft, non-distended, no guarding, no peritoneal signs, non-tender Back: No tenderness Extremities: no edema, pulses intact, non-tender,capillary refill <3 sec bilateral upper and lower extremities left foot dressing is clear dry and intac t. No malodor Neuro: Alert and oriented x 4, no focal deficits, normal speech Labs: Labs: Laboratory Tests Test 12/31/21 11:57 12/31/21 12:02 White Blood Count 12.5 x10^3/uL (4.0-11.0) Red Blood Count 4.23 x10^6/uL (4.30-5.70) Hemoglobin 15.2 g/dL (13.0-17.5) Hematocrit 43.1 % (39.0-53.0) Mean Corpuscular Volume 102 fL (79-100) Mean Corpuscular Hemoglobin 36 pg (25-35) Mean Corpuscular Hemoglobin Concent 35 g/dL (31-37) Red Cell Distribution Width 12.9 % (11.5-14.5) Platelet Count 285 x10^3/uL (140-400) Neutrophils (%) (Auto) 72 % (31-73) Lymphocytes (%) (Auto) 11 % (24-48) Monocytes (%) (Auto) 16 % (0-9) Eosinophils (%) (Auto) 1 % (0-3) Basophils (%) (Auto) 1 % (0-3) Neutrophils # (Auto) 8.9 x10^3/uL (1.8-7.7) Lymphocytes # (Auto) 1.4 x10^3/uL (1.0-4.8) Monocytes # (Auto) 1.9 x10^3/uL (0.0-1.1) Eosinophils # (Auto) 0.1 x10^3/uL (0.0-0.7) Basophils # (Auto) 0.1 x10^3/uL (0.0-0.2) Sodium Level 132 mmol/L (136-145) Potassium Level 3.7 mmol/L (3.5-5.1) Chloride Level 96 mmol/L (98-107) Carbon Dioxide Level 27 mmol/L (21-32) Anion Gap 9 (6-14) Blood Urea Nitrogen 10 mg/dL (8-26) Creatinine 1.0 mg/dL (0.7-1.3) Estimated GFR (Cockcroft-Gault) 81.6 Glucose Level 139 mg/dL (70-99) Calcium Level 8.9 mg/dL (8.5-10.1) Glucose (Fingerstick) 139 mg/dL (70-99) Laboratory Tests Test 12/31/21 11:57 12/31/21 12:02 White Blood Count 12.5 x10^3/uL (4.0-11.0) Red Blood Count 4.23 x10^6/uL (4.30-5.70) Hemoglobin 15.2 g/dL (13.0-17.5) Hematocrit 43.1 % (39.0-53.0) Mean Corpuscular Volume 102 fL (79-100) Mean Corpuscular Hemoglobin 36 pg (25-35) Mean Corpuscular Hemoglobin Concent 35 g/dL (31-37) Red Cell Distribution Width 12.9 % (11.5-14.5) Platelet Count 285 x10^3/uL (140-400) Neutrophils (%) (Auto) 72 % (31-73) Lymphocytes (%) (Auto) 11 % (24-48) Monocytes (%) (Auto) 16 % (0-9) Eosinophils (%) (Auto) 1 % (0-3) Basophils (%) (Auto) 1 % (0-3) Neutrophils # (Auto) 8.9 x10^3/uL (1.8-7.7) Lymphocytes # (Auto) 1.4 x10^3/uL (1.0-4.8) Monocytes # (Auto) 1.9 x10^3/uL (0.0-1.1) Eosinophils # (Auto) 0.1 x10^3/uL (0.0-0.7) Basophils # (Auto) 0.1 x10^3/uL (0.0-0.2) Sodium Level 132 mmol/L (136-145) Potassium Level 3.7 mmol/L (3.5-5.1) Chloride Level 96 mmol/L (98-107) Carbon Dioxide Level 27 mmol/L (21-32) Anion Gap 9 (6-14) Blood Urea Nitrogen 10 mg/dL (8-26) Creatinine 1.0 mg/dL (0.7-1.3) Estimated GFR (Cockcroft-Gault) 81.6 Glucose Level 139 mg/dL (70-99) Calcium Level 8.9 mg/dL (8.5-10.1) Glucose (Fingerstick) 139 mg/dL (70-99) Images: Images PROCEDURE: ARLENE ART STUDY LOWER EXTREM NATALIE EXAM: Lower extremity arterial Doppler sonogram with ankle-brachial indices (ARLENE). HISTORY: Nonhealing ulcer of the left great toe. Peripheral vascular disease. Atherosclerosis. TECHNIQUE: Doppler sonographic evaluation of the lower extremities was performed and pressure readings were assessed. FINDINGS: Right brachial pressure: 144 mmHg Left brachial pressure: 145 mmHg Right ankle pressure (dorsalis pedis): 166 mmHg Right ankle pressure (posterior tibial): 156 mmHg Right ARLENE: 1.1 Left ankle pressure (posterior tibial): 159 mmHg Left ankle pressure (dorsalis pedis): 158 mmHg Left ARLENE: 1.1 There are normal triphasic waveforms throughout the left lower extremity arteries. There is mild relative elevation of the peak systolic velocity within the distal left posterior tibial artery. However, this remains within normal limits. IMPRESSION: 1. Normal ankle-brachial indices. 2. No evidence of severe stenosis or occlusion involving the left lower extremity arteries. Assessment/Plan Assessment/Plan Left first digit diabetic foot ulcer Macrocytosis Acute electrolyte derangement suggestive of volume depletion History of diabetes mellitus type 2 History of hypertension Admit to hospitalist service for further management Vascular surgery consult for diabetic foot ulcer Pending MRI of the left lower extremity Wound care consult to follow for wound care after surgery Continue IV fluids R-ISS and Accu-Cheks Resume home antihypertensive regimen Pending vitamin B12 levels Lovenox for DVT prophylaxis ADA diet CODE STATUS full Discussed with RN and SW Disposition inpatient management as above DPOA: Father Justifications for Admission Other Justification SEGUNDO MELÉNDEZ MD Dec 31, 2021 13:48
[2021-12-31 13:57] LABS: % LYMPHS 12 % (24-48); % MONOS 9 % (0-10); % SEGS 79 % (35-66); PLT ESTIMATE ADEQUATE (ADEQUATE)
[2021-12-31] MEDS: oxyCODONE/APAP 5/325 1 TAB TABLET PO PRN ×2 (14:41→21:37)
[2021-12-31] MEDS: IV NORMAL SALINE 1000ML BAG 1,000 ML IV SCH ×2 (14:42→21:09)
[2021-12-31] MEDS: ENOXAPARIN 40 MG/0.4 ML SYRINGE. SQ SCH ×2 (14:50→21:00)
[2021-12-31 15:00] VITALS: BP 145/96
[2021-12-31] MEDS ORDERED: LINEZOLID 600 MG TABLET PO SCH (16:00)
--- NOTE | 2021-12-31 17:22 | RAD ---
EXAMINATION: MRI LEFT LOWER EXTREMITY W/WO INDICATIONS: Osteomyelitis. Great toe ulcer TECHNIQUE: Multiplanar multisequence MRI of the right forefoot was obtained before and after adminis tration of 30 mL clariscan contrast. COMPARISON: Left foot radiograph 03/13/2021 FINDINGS: There is confluent low T1 marrow signal and mild edema at the tip of the great toe distal p halanx. Milder low T1 marrow signal in the rest of the great toe distal phalanx. Marrow signal elsewh ere is normal. No evidence of septic arthritis. Mild degenerative joint disease of the great toe MTP joint with small joint effusion There is a soft tissue ulcer at the plantar aspect of the great toe distal phalanx with a sinus tract to the bone and minimal underlying fluid. Mild diffuse subcutaneous edema. Diffuse muscular edema. T he flexor tendon to the great toe is not well-visualized along the proximal and distal phalanx, and m ay be ruptured. IMPRESSION: 1. Osteomyelitis of the great toe distal phalanx deep to a soft tissue ulcer. 2. The flexor tendon of the great toe is not well visualized and may be ruptured. Electronically signed by: Gabriela Recio MD (12/31/2021 5:20 PM) [id number]
[2021-12-31] MEDS: DAPTOMYCIN IV SCH (17:52)
[2021-12-31] MEDS: NORMAL SALINE IV SCH (17:52)
[2021-12-31] MEDS: INSULIN LISPRO 300 UNITS/3 ML VIAL. SQ SCH (18:05)
[2021-12-31] MEDS: PIPERACILLIN/TAZOBACTAM 3.375 GM in IV NORMAL SALINE 50ML 50 ML IV SCH ×2 (18:26→23:58)
--- NOTE | 2021-12-31 18:50 | CONS ---
REFERRING PHYSICIAN: Jeanna Antonio PA-C REASON FOR CONSULTATION: Diabetic foot ulcer, antibiotic management. HISTORY OF PRESENT ILLNESS: A 41-year-old male with history of diabetes, presented with a left plantar diabetic foot ulcer, which started about 2 months ago as a punctate blood blister, which progressively got worse. The patient had recent travel to [place] with lots of walking and where he went swimming 2 weeks ago, at which time the toe became more red, swollen and macerated. He started having swelling on the dorsal aspect of the foot. He had not been on any antibiotics. He tried to take care of it at home with local dressing. The patient did not have much pain until he went to wound care clinic where they probed the wound. It probed through the bone. He was admitted for further evaluation and treatment. He was afebrile. White count on presentation was 12.5. Sodium of 132, glucose of 139. Lower extremity MRI is done, which is pending at this time. The patient is currently not on any antibiotics. Vascular Surgery was consulted. Depending on MRI, they will decide on further evaluation and treatment. ID consultation has been made for antibiotic management. REVIEW OF SYSTEMS: Negative for fever, nausea, vomiting, diarrhea, chest pain, dysuria, hematuria, shortness of breath, cough, headache, sore throat, difficulty swallowing, symptoms, purulent drainage or bleeding from the wound. PAST MEDICAL HISTORY: Diabetes mellitus, hypertension, morbid obesity. MEDICATIONS: No antibiotics noted. ALLERGIES: SULFA. FAMILY HISTORY: As per HPI. SOCIAL HISTORY: Denies smoking, ETOH, or illicit drug use. 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 PHYSICAL EXAMINATION: VITALS: Reviewed. GENERAL: Alert, oriented x3, pleasant male in no acute distress. HEENT: Normocephalic, atraumatic. Anicteric. No thrush. NECK: Supple, no JVD. LUNGS: Clear bilaterally. No wheezing. HEART: S1, S2. No gallops or murmurs. ABDOMEN: Soft, nontender, nondistended. GENITOURINARY: No Dutta in place. EXTREMITIES: Left foot with swelling, redness, more over the dorsal aspect of the left foot with first toe swelling, a large plantar wound with clean base on the plantar aspect. No drainage. Tender callus surrounding the large ulcer. There is also some yellowish macerated area just below the nail bed. No purulence, no fluctuance. Left lower extremity swelling present. Right second toe has dry blood with no drainage. DERMATOLOGIC: Warm, dry, no generalized rash except for above. NEUROLOGIC: Alert and oriented x3, grossly nonfocal. PSYCHIATRIC: Calm and cooperative. IMPRESSION: 1. Left foot nonhealing plantar diabetic foot ulcer, worsening. 2. Left foot cellulitis. 3. Diabetes mellitus. 4. Hypertension. 5. Fever 6. Obesity. RECOMMENDATIONS: 1. We will start the patient on IV Zosyn and Daptomycin 2. Followup MRI results. 3. Vascular Surgery has evaluated the patient. 4. Continue local wound care as directed. 5. Continue supportive care. 6. Offload. Thank you for allowing me to participate in this patient's care. If you have any questions, do not hesitate to contact me. Discussed with nursing staff. TYLOR/LAURA/YONATAN DR: Nargis TID: [id number] MTDD
[2021-12-31 19:00] VITALS: BP 140/83
[2021-12-31] MEDS ORDERED: FAMO-63 PO (19:38)
[2021-12-31] MEDS ORDERED: METF10007 PO (19:38)
[2021-12-31] MEDS ORDERED: DESV50TA PO (19:38)
[2021-12-31] MEDS ORDERED: MULT-735 PO (19:38)
[2021-12-31] MEDS ORDERED: SITA100T PO (19:38)
[2021-12-31] MEDS ORDERED: METO-239 PO (19:38)
[2021-12-31 22:57] VITALS: BP 146/79
[2022-01-01 02:52] VITALS: BP 154/84
[2022-01-01] MEDS: PIPERACILLIN/TAZOBACTAM 3.375 GM in IV NORMAL SALINE 50ML 50 ML IV SCH ×4 (05:35→23:41)
[2022-01-01 06:47] LABS: BASO # 0.1 x10^3/uL (0.0-0.2); BASO % 1 % (0-3); EOS # 0.2 x10^3/uL (0.0-0.7); EOS % 2 % (0-3); HEMATOCRIT 42.2 % (39.0-53.0); HEMOGLOBIN 14.8 g/dL (13.0-17.5); LYMPH # 1.6 x10^3/uL (1.0-4.8); LYMPH % 14 % (24-48); MEAN CORPUSCULAR HEMOGLOBIN 36 pg (25-35); MEAN CORPUSCULAR HGB CONC 35 g/dL (31-37); MEAN CORPUSCULAR VOLUME 103 fL (79-100); MONO # 1.7 x10^3/uL (0.0-1.1); MONO % 15 % (0-9); NEUT # 7.6 x10^3/uL (1.8-7.7); NEUT % 68 % (31-73); PLATELET COUNT 266 x10^3/uL (140-400); RED CELL DISTRIBUTION WIDTH 13.2 % (11.5-14.5); WHITE BLOOD COUNT 11.1 x10^3/uL (4.0-11.0)
[2022-01-01 07:00] VITALS: BP 152/103
[2022-01-01 07:02] LABS: CALCIUM 8.4 mg/dL (8.5-10.1); CREATININE 0.9 mg/dL (0.7-1.3); GFR 92.1; MAGNESIUM 1.9 mg/dL (1.8-2.4); PHOSPHORUS 3.6 mg/dL (2.6-4.7); POTASSIUM 3.5 mmol/L (3.5-5.1)
[2022-01-01] MEDS: oxyCODONE/APAP 5/325 1 TAB TABLET PO PRN ×4 (07:31→20:44)
[2022-01-01] MEDS: INSULIN LISPRO 300 UNITS/3 ML VIAL. SQ SCH ×3 (08:00→17:00)
--- NOTE | 2022-01-01 08:39 | PDOC ---
Provider Note Date of Service: DATE: 01/01/22 TIME: 08:30 Provider Note Provider Note 0820 Vascular: Follow up consultation for left great toe DFU. Pt seen in room this morning. MRI report shows left distal tuft osteomyelitis. Pt does report his A1C in February was his initial diagnosis, his more recent ones done at PCP have been <7, but it has been a few months since drawn. He had fever last night. WBC was 12.5 yesterday, 11.1 today. Was started on IV abx yesterday. Reports no difference in pain in toe this am. O: elevated temp and tachycardic Awake, alert, in no apparent distress Respirations nonlabored, room air Left foot dressing removed. Second toe with distal toe ecchymosis. Great toe with maceration from PIP joint and distal, plantar surface ulcer goes almost from MTP joint to entirity of toe distally. Toe is malodorous, there is minimal purulence from plantar penetrating ulcer. Erythema coming from toe extending to medial forefoot. Palpable pedal pulses. A/P: Left great toe osteomyelitis He has been started on IV abx. I discussed with him again the details of options including trial of longterm IV abx requiring PICC line vs surgical toe amputation. We discussed details of both with potential outcomes of both options. He is electing to proceed with IV abx, wound care and strict offloading. Will order half shoe. I offered bedside debridement to help with wound healing and to hopefully obtain a better wound culture, he would like to proceed. Will perform later this morning. Justicifation of Admission Dx: Justifications for Admission: Justification of Admission Dx: Yes Comments: IV abx for osteomyelitis SHADE KRISHNAN Jan 01, 2022 08:39
[2022-01-01] MEDS: ENOXAPARIN 40 MG/0.4 ML SYRINGE. SQ SCH ×2 (09:00→20:44)
[2022-01-01] MEDS: MORPHINE SULFATE 2 MG/ML INJ. IV PRN (09:24)
--- NOTE | 2022-01-01 09:57 | PDOC ---
Provider Note Date of Service: DATE: 01/01/22 TIME: 09:44 Provider Note Provider Note Procedure Note Procedure: Left great toe excisional debridement including skin and subcutaneous tissue, measurements 3 x 4 cm Findings: Partial nail removal, no purulent drainage noted from lateral or distal tip of toe. There remains purulent drainage from penetrating ulcer tracking directly to bone in center of clean plantar ulcer. Blood Loss: None Description of procedure: Lidocaine gel was applied to toe and let sit for approximately 20 minutes. The patient was given IV morphine. The toe was prepped with Betadine. Sterile scissors and pickups were used to excise the distal tip skin and subcutaneous tissue revealing a mushy discolored tissue u nderneath, there was no purulence or drainage from under the nail bed. All unhealthy tissue was debrided and excised to the patient's toleration. Partial distal nail removal was also performed without findings of purulence. Attention was directed to lateral toe where there was macerated and questionable fluctuance, the outer skin was excised without concerns for deeper infection. The wound and toe was irrigated with normal saline, moistened aquacel AG was placed selectively over the ulcer bed with dry gauze over the rest of the wound and toe with Kerlix gauze wrap. Pt tolerated procedure well without complications. Discussed with Alexander, wound care, to redress later with packing/their preference. Plan: Vascular surgery will sign off at this time and defer further patient care to infectious disease for antibiotic management and wound care center for continued wound care. I discussed with him importance of offloading and have ordered a forefoot offloading half shoe to assist in this. I discussed with him that the penetrating ulcer that goes directly to bone on the plantar surface of his toe is not a good clinical sign for healing prognosis, also discussed risks of worsening or ascending infection and what to watch for. He exhibited un derstanding and wishes to proceed with trial of medical management prior to surgery. I also discussed with him the importance of good blood sugar control. Please call vascular surgery with further questions or concerns or if patient elects to proceed with surgery. Justicifation of Admission Dx: Justifications for Admission: Justification of Admission Dx: Yes SHADE KRISHNAN Jan 01, 2022 09:57
--- NOTE | 2022-01-01 10:29 | NUR ---
0900 [facility] held d/t bedside debridement.
[2022-01-01 11:00] VITALS: BP 152/89
[2022-01-01] MEDS ORDERED: AMLO-187 PO (11:03)
[2022-01-01] MEDS: IV NORMAL SALINE 1000ML BAG 1,000 ML IV SCH ×2 (13:27→20:45)
--- NOTE | 2022-01-01 13:40 | PDOC ---
Infectious Disease Note Subjective: Subjective Pt had fever yesterday underwent bedside I and D by vascular team as he declined amputation had cold and hot spells last night with sweating None today Vital Signs: Vital Signs Vital Signs Date Time Temp Pulse Resp B/P (MAP) Pulse Ox O2 Delivery O2 Flow Rate FiO2 01/01/22 12:04 19 Room Air 01/01/22 11:00 99.4 101 152/89 (110) 95 99.4 Physical Exam: PHYSICAL EXAM GENERAL: Alert, oriented x3, pleasant male in no acute distress. HEENT: Normocephalic, atraumatic. Anicteric. No thrush. NECK: Supple, no JVD. LUNGS: Clear bilaterally. No wheezing. HEART: S1, S2. No gallops or murmurs. ABDOMEN: Soft, nontender, nondistended. GENITOURINARY: No Dutta in place. EXTREMITIES: Left foot with swelling, redness, more over the dorsal aspect of the left foot with first toe swelling, a large plantar wound with clean base on the plantar aspect. No drainage. Tender callus surrounding the large ulcer. There is also some yellowish macerated area just below the nail bed. No purulence, no fluctuance. Left lower extremity swelling present.Lt second toe has dry blood with no drainage. DERMATOLOGIC: Warm, dry, no generalized rash except for above. NEUROLOGIC: Alert and oriented x3, grossly nonfocal. PSYCHIATRIC: Calm and cooperative. Medications: Inpatient Meds: Medications reviewed. Labs: Lab Laboratory Tests Test 12/31/21 17:08 12/31/21 18:48 01/01/22 04:35 01/01/22 07:44 Glucose (Fingerstick) 174 mg/dL (70-99) 162 mg/dL (70-99) 164 mg/dL (70-99) White Blood Count 11.1 x10^3/uL (4.0-11.0) Red Blood Count 4.10 x10^6/uL (4.30-5.70) Hemoglobin 14.8 g/dL (13.0-17.5) Hematocrit 42.2 % (39.0-53.0) Mean Corpuscular Volume 103 fL (79-100) Mean Corpuscular Hemoglobin 36 pg (25-35) Mean Corpuscular Hemoglobin Concent 35 g/dL (31-37) Red Cell Distribution Width 13.2 % (11.5-14.5) Platelet Count 266 x10^3/uL (140-400) Neutrophils (%) (Auto) 68 % (31-73) Lymphocytes (%) (Auto) 14 % (24-48) Monocytes (%) (Auto) 15 % (0-9) Eosinophils (%) (Auto) 2 % (0-3) Basophils (%) (Auto) 1 % (0-3) Neutrophils # (Auto) 7.6 x10^3/uL (1.8-7.7) Lymphocytes # (Auto) 1.6 x10^3/uL (1.0-4.8) Monocytes # (Auto) 1.7 x10^3/uL (0.0-1.1) Eosinophils # (Auto) 0.2 x10^3/uL (0.0-0.7) Basophils # (Auto) 0.1 x10^3/uL (0.0-0.2) Sodium Level 133 mmol/L (136-145) Potassium Level 3.5 mmol/L (3.5-5.1) Chloride Level 98 mmol/L (98-107) Carbon Dioxide Level 25 mmol/L (21-32) Anion Gap 10 (6-14) Blood Urea Nitrogen 11 mg/dL (8-26) Creatinine 0.9 mg/dL (0.7-1.3) Estimated GFR (Cockcroft-Gault) 92.1 Glucose Level 147 mg/dL (70-99) Calcium Level 8.4 mg/dL (8.5-10.1) Phosphorus Level 3.6 mg/dL (2.6-4.7) Magnesium Level 1.9 mg/dL (1.8-2.4) Micro BC neg MRI Lt foot IMPRESSION: 1. Osteomyelitis of the great toe distal phalanx deep to a soft tissue ulcer. 2. The flexor tendon of the great toe is not well visualized and may be ruptured. Objective: Assessment: 1. 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 Left foot cellulitis. 3. Diabetes mellitus. 4. Hypertension. 5. Fever 6. Obesity. Plan: Plan of Care Cont IV Zosyn and Daptomycin Pt declined amputation He is requesting trial with IV antibiotics Pending discussed that that may not be adequate Strict offload Wound care as directed Monitor labs and cultures PICC line tomorrow if blood cultures remain negative Tentative discharge antibiotics would be IV daptomycin and Zosyn continuous infusion daily for 3 to 4 weeks Continue supportive care Discussed with ABAD HERNANDEZ MD Jan 01, 2022 13:40
--- NOTE | 2022-01-01 14:07 | PDOC ---
[facility] PROGRESS NOTE Date of Service DOS: DATE: 01/01/22 TIME: 13:56 Chief Complaint Chief Complaint Left first digit diabetic foot ulcer Macrocytosis Acute electrolyte derangement suggestive of volume depletion History of diabetes mellitus type 2 History of hypertension History of Present Illness History of Present Illness 01/01/2022: Patient seen and evaluated bedside. MRI showed osteomyelitis of the great toe distal phalanx deep to a soft tissue ulcer. Reports pain in his left big toe, likely due to recent debridement. He is opting to defer surgery and proceed with antibiotics and wound care. Vascular surgery has signed off. WBC 11.1 today. Hemoglobin A1c pending. Continue with IV antibiotics, per ID. Discussed with patient, likely 6 weeks IV antibiotics and transition to oral antibiotics after that. Vitals/I&O Vitals/I&O: Vital Signs Date Time Temp Pulse Resp B/P (MAP) Pulse Ox O2 Delivery O2 Flow Rate FiO2 01/01/22 12:04 19 Room Air 01/01/22 11:00 99.4 101 152/89 (110) 95 99.4 I & O 12/31/21 12/31/21 01/01/22 15:00 23:00 07:00 Intake Total 500 ml 500 ml Balance 500 ml 500 ml Physical Exam Physical Exam: GENERAL: Alert, oriented x3, pleasant male in no acute distress. HEENT: Normocephalic, atraumatic. Anicteric. No thrush. NECK: Supple, no JVD. LUNGS: Clear bilaterally. No wheezing. HEART: S1, S2. No gallops or murmurs. ABDOMEN: Soft, nontender, nondistended. GENITOURINARY: No Dutta in place. EXTREMITIES: Left foot with swelling, redness, more over the dorsal aspect of the left foot with first toe swelling, a large plantar wound with clean base on the plantar aspect. No drainage. Tender callus surrounding the large ulcer. There is also some yellowish macerated area just below the nail bed. No purulence, no fluctuance. Left lower extremity swelling present.Lt second toe has dry blood with no drainage. DERMATOLOGIC: Warm, dry, no generalized rash except for above. NEUROLOGIC: Alert and oriented x3, grossly nonfocal. PSYCHIATRIC: Calm and cooperative. General: Alert, Oriented X3, Cooperative, No acute distress Heart: Regular rate Lungs: Clear Abdomen: Normal bowel sounds, Soft Extremities: Normal pulses (Normal DP and PT bilaterally. ), Other (No right foot wounds or erythema. Left foot with ecchymosis to nail bed of second toe, no drianage. First toe with distal part all macerated circumferentially with boggy tissue medially and plantar ulcer with clean wound bed on plantar surface. There is no drainage extracted. Attempted to probe ulcer and under nail bed but this was too painful for pt and not tolerated. There is no fluctuance or draiange, there is erythema extending to forefoot. He has 1+swelling RLE) Skin: Other (L great toe wound as in described above. ) Labs Labs: Laboratory Tests Test 12/31/21 17:08 12/31/21 18:48 01/01/22 04:35 01/01/22 07:44 Glucose (Fingerstick) 174 mg/dL (70-99) 162 mg/dL (70-99) 164 mg/dL (70-99) White Blood Count 11.1 x10^3/uL (4.0-11.0) Red Blood Count 4.10 x10^6/uL (4.30-5.70) Hemoglobin 14.8 g/dL (13.0-17.5) Hematocrit 42.2 % (39.0-53.0) Mean Corpuscular Volume 103 fL (79-100) Mean Corpuscular Hemoglobin 36 pg (25-35) Mean Corpuscular Hemoglobin Concent 35 g/dL (31-37) Red Cell Distribution Width 13.2 % (11.5-14.5) Platelet Count 266 x10^3/uL (140-400) Neutrophils (%) (Auto) 68 % (31-73) Lymphocytes (%) (Auto) 14 % (24-48) Monocytes (%) (Auto) 15 % (0-9) Eosinophils (%) (Auto) 2 % (0-3) Basophils (%) (Auto) 1 % (0-3) Neutrophils # (Auto) 7.6 x10^3/uL (1.8-7.7) Lymphocytes # (Auto) 1.6 x10^3/uL (1.0-4.8) Monocytes # (Auto) 1.7 x10^3/uL (0.0-1.1) Eosinophils # (Auto) 0.2 x10^3/uL (0.0-0.7) Basophils # (Auto) 0.1 x10^3/uL (0.0-0.2) Sodium Level 133 mmol/L (136-145) Potassium Level 3.5 mmol/L (3.5-5.1) Chloride Level 98 mmol/L (98-107) Carbon Dioxide Level 25 mmol/L (21-32) Anion Gap 10 (6-14) Blood Urea Nitrogen 11 mg/dL (8-26) Creatinine 0.9 mg/dL (0.7-1.3) Estimated GFR (Cockcroft-Gault) 92.1 Glucose Level 147 mg/dL (70-99) Calcium Level 8.4 mg/dL (8.5-10.1) Phosphorus Level 3.6 mg/dL (2.6-4.7) Magnesium Level 1.9 mg/dL (1.8-2.4) Comment Review of Relevant I have reviewed the following items karson (where applicable) has been applied. Medications: Current Medications Medications (Trade) Dose Ordered Sig/Priti Route PRN Reason Start Time Stop Time Status Last Admin Dose Admin Amlodipine Besylate (Norvasc) 10 mg HS PO 12/31/21 21:00 12/31/21 21:09 Insulin Human Lispro (HumaLOG) 0-7 UNITS TIDWMEALS SQ 12/31/21 17:00 01/01/22 11:40 Enoxaparin Sodium (Lovenox 40mg Syringe) 40 mg Q12HR SQ 12/31/21 14:00 12/31/21 14:50 Piperacillin Sod/ Tazobactam Sod 3.375 gm/Sodium Chloride 50 ml @ 100 mls/hr Q6HRS IV 12/31/21 16:00 01/01/22 11:34 Daptomycin 650 mg/ Sodium Chloride 50 ml @ 100 mls/hr Q24H IV 12/31/21 18:00 12/31/21 17:52 Justifications for Admission Other Justification Diabetic foot ulcer JAZMINE GOODMAN MD Jan 01, 2022 14:07
[2022-01-01] MEDS ORDERED: IV NORMAL SALINE 1000ML BAG 1,000 ML IV ONE (14:30)
[2022-01-01 15:00] VITALS: BP 147/94
[2022-01-01] MEDS ORDERED: ALPRAZolam 0.5 MG TABLET PO PRN (15:15)
[2022-01-01] MEDS: metFORMIN 500 MG TABLET PO SCH (15:45)
[2022-01-01] MEDS: LINAGLIPTIN 5 MG TABLET PO SCH (15:45)
[2022-01-01] MEDS: METOPROLOL SUCC 24HR ER 25 MG TAB.ER.24H. PO SCH (15:47)
[2022-01-01] MEDS: FAMOTIDINE 20 MG TABLET. PO SCH (15:47)
[2022-01-01] MEDS: MULTIVITAMIN with MINERAL TABLET. PO SCH (15:47)
[2022-01-01] MEDS: DESVENLAFAXINE 25 MG TAB.ER.24H PO SCH (15:47)
--- NOTE | 2022-01-01 16:50 | NUR ---
Wound Care Wound Type/Assessment: Follow up with pt following bedside debridement with Jeanna MONREAL with vascular. Pt L great and second toes are swollen and indurated with redness extending beyond the front half of the dorsal forefoot; marked with black sharpie. Distal tip of great toe is callused, fluctuant, macerated, and discolored. Periwound is red, swollen and macerated. Wound base is slough covered with a small central opening reaching 1.3cm in depth and probes to bone. Unable to determine if any undermining or tunnels exist due to pain on exam Treatment Recommendations/Plan: L great toe: Pack wound depth with sheila collagen, cover with iodoflex (remove white mesh), cover with foam and tape. Change every 2-3 days. No pressure to wound at any time. Wear offloading shoe for any ambulation. Heel touch only. Recommend walker Education provided: DM II management and wound healing. Offloading surface/device: Pt is independent with mobility. Recommended Referrals/Tests: Continue treatment with ID and vascular surgery. Discharge Recommendations for dressings: As above.
[2022-01-01] MEDS: NORMAL SALINE IV SCH (17:08)
[2022-01-01] MEDS: DAPTOMYCIN IV SCH (17:08)
[2022-01-01 19:00] VITALS: BP 161/87
[2022-01-01] MEDS: ATORVASTATIN CALCIUM 40 MG TABLET. PO SCH (20:44)
[2022-01-01] MEDS: LACTOBACILLUS RHAMNOSUS GG 1 CAPSULE. PO SCH (20:44)
[2022-01-01 23:00] VITALS: BP 129/78
[2022-01-02 00:13] LABS: HEMOGLOBIN A1C 6.4 % (4.8-5.6)
[2022-01-02] MEDS: IV NORMAL SALINE 1000ML BAG 1,000 ML IV SCH ×2 (02:54→14:43)
[2022-01-02 03:00] VITALS: BP 135/88
[2022-01-02] MEDS: PIPERACILLIN/TAZOBACTAM 3.375 GM in IV NORMAL SALINE 50ML 50 ML IV SCH ×4 (05:33→23:50)
[2022-01-02] MEDS: oxyCODONE/APAP 5/325 1 TAB TABLET PO PRN ×4 (05:42→20:16)
[2022-01-02 07:00] VITALS: BP 143/98
[2022-01-02 07:23] LABS: BASO % 0 % (0-3); EOS # 0.3 x10^3/uL (0.0-0.7); EOS % 3 % (0-3); HEMATOCRIT 43.5 % (39.0-53.0); HEMOGLOBIN 15.1 g/dL (13.0-17.5); LYMPH # 1.5 x10^3/uL (1.0-4.8); LYMPH % 16 % (24-48); MEAN CORPUSCULAR HEMOGLOBIN 36 pg (25-35); MEAN CORPUSCULAR HGB CONC 35 g/dL (31-37); MEAN CORPUSCULAR VOLUME 104 fL (79-100); MONO # 1.2 x10^3/uL (0.0-1.1); MONO % 12 % (0-9); NEUT # 6.8 x10^3/uL (1.8-7.7); NEUT % 69 % (31-73); PLATELET COUNT 272 x10^3/uL (140-400); RED BLOOD COUNT 4.18 x10^6/uL (4.30-5.70); RED CELL DISTRIBUTION WIDTH 12.9 % (11.5-14.5); WHITE BLOOD COUNT 9.9 x10^3/uL (4.0-11.0)
[2022-01-02 07:29] LABS: CALCIUM 8.3 mg/dL (8.5-10.1); CREATININE 0.9 mg/dL (0.7-1.3); GFR 92.1; MAGNESIUM 2.1 mg/dL (1.8-2.4); POTASSIUM 3.7 mmol/L (3.5-5.1)
[2022-01-02] MEDS: INSULIN LISPRO 300 UNITS/3 ML VIAL. SQ SCH ×3 (08:00→17:37)
[2022-01-02] MEDS: ENOXAPARIN 40 MG/0.4 ML SYRINGE. SQ SCH ×2 (08:04→20:16)
[2022-01-02] MEDS: LACTOBACILLUS RHAMNOSUS GG 1 CAPSULE. PO SCH ×2 (08:04→20:16)
[2022-01-02] MEDS: MULTIVITAMIN with MINERAL TABLET. PO SCH (08:05)
[2022-01-02] MEDS: LINAGLIPTIN 5 MG TABLET PO SCH (08:05)
[2022-01-02] MEDS: metFORMIN 500 MG TABLET PO SCH (08:05)
[2022-01-02] MEDS: FAMOTIDINE 20 MG TABLET. PO SCH (08:05)
[2022-01-02] MEDS: METOPROLOL SUCC 24HR ER 25 MG TAB.ER.24H. PO SCH (08:06)
[2022-01-02] MEDS: DESVENLAFAXINE 25 MG TAB.ER.24H PO SCH (09:24)
[2022-01-02 11:00] VITALS: BP 150/95
--- NOTE | 2022-01-02 13:24 | PDOC ---
[facility] PROGRESS NOTE Date of Service DOS: DATE: 01/02/22 TIME: :21 Chief Complaint Chief Complaint Left first digit diabetic foot ulcer Macrocytosis Acute electrolyte derangement suggestive of volume depletion History of diabetes mellitus type 2 History of hypertension History of Present Illness History of Present Illness 01/01/2022: Patient seen and evaluated bedside. MRI showed osteomyelitis of the great toe distal phalanx deep to a soft tissue ulcer. Reports pain in his left big toe, likely due to recent debridement. He is opting to defer surgery and proceed with antibiotics and wound care. Vascular surgery has signed off. WBC 11.1 today. Hemoglobin A1c pending. Continue with IV antibiotics, per ID. Discussed with patient, likely 6 weeks IV antibiotics and transition to oral antibiotics after that. 01/02: Patient seen and evaluated. White count within normal limits. No growth on blood culture today. His wound culture is growing mixed aerobic gwen, many group B strep, moderate strep mitis/oralis. Will await for sensitivities. Blood sugar well controlled. Continue IV antibiotics, per ID. Pain controlled with oral medication. He will need a PICC line prior to discharge. Vitals/I&O Vitals/I&O: Vital Signs Date Time Temp Pulse Resp B/P (MAP) Pulse Ox O2 Delivery O2 Flow Rate FiO2 01/02/22 11:00 98.9 91 20 150/95 (113) 96 Room Air 98.9 I & O 01/01/22 01/01/22 01/02/22 15:00 23:00 07:00 Intake Total 240 ml 240 ml Output Total 1600 ml Balance 240 ml 240 ml -1600 ml Physical Exam Physical Exam: GENERAL: Alert, oriented x3, pleasant male in no acute distress. HEENT: Normocephalic, atraumatic. Anicteric. No thrush. NECK: Supple, no JVD. LUNGS: Clear bilaterally. No wheezing. HEART: S1, S2. No gallops or murmurs. ABDOMEN: Soft, nontender, nondistended. GENITOURINARY: No Dutta in place. EXTREMITIES: Left foot with swelling, redness, more over the dorsal aspect of the left foot with first toe swelling, a large plantar wound with clean base on the plantar aspect. No drainage. Tender callus surrounding the large ulcer. There is also some yellowish macerated area just below the nail bed. No purulence, no fluctuance. Left lower extremity swelling present.Lt second toe has dry blood with no drainage. DERMATOLOGIC: Warm, dry, no generalized rash except for above. NEUROLOGIC: Alert and oriented x3, grossly nonfocal. PSYCHIATRIC: Calm and cooperative. General: Alert, Oriented X3, Cooperative, No acute distress Heart: Regular rate Lungs: Clear Abdomen: Normal bowel sounds, Soft Extremities: Normal pulses (Normal DP and PT bilaterally. ), Other (No right foot wounds or erythema. Left foot with ecchymosis to nail bed of second toe, no drianage. First toe with distal part all macerated circumferentially with boggy tissue medially and plantar ulcer with clean wound bed on plantar surface. There is no drainage extracted. Attempted to probe ulcer and under nail bed but this was too painful for pt and not tolerated. There is no fluctuance or draiange, there is erythema extending to forefoot. He has 1+swelling RLE) Skin: Other (L great toe wound as in described above. ) Labs Labs: Laboratory Tests Test 01/01/22 16:37 01/01/22 20:09 01/02/22 06:15 01/02/22 07:46 Glucose (Fingerstick) 138 mg/dL (70-99) 190 mg/dL (70-99) 150 mg/dL (70-99) White Blood Count 9.9 x10^3/uL (4.0-11.0) Red Blood Count 4.18 x10^6/uL (4.30-5.70) Hemoglobin 15.1 g/dL (13.0-17.5) Hematocrit 43.5 % (39.0-53.0) Mean Corpuscular Volume 104 fL (79-100) Mean Corpuscular Hemoglobin 36 pg (25-35) Mean Corpuscular Hemoglobin Concent 35 g/dL (31-37) Red Cell Distribution Width 12.9 % (11.5-14.5) Platelet Count 272 x10^3/uL (140-400) Neutrophils (%) (Auto) 69 % (31-73) Lymphocytes (%) (Auto) 16 % (24-48) Monocytes (%) (Auto) 12 % (0-9) Eosinophils (%) (Auto) 3 % (0-3) Basophils (%) (Auto) 0 % (0-3) Neutrophils # (Auto) 6.8 x10^3/uL (1.8-7.7) Lymphocytes # (Auto) 1.5 x10^3/uL (1.0-4.8) Monocytes # (Auto) 1.2 x10^3/uL (0.0-1.1) Eosinophils # (Auto) 0.3 x10^3/uL (0.0-0.7) Basophils # (Auto) 0.0 x10^3/uL (0.0-0.2) Sodium Level 134 mmol/L (136-145) Potassium Level 3.7 mmol/L (3.5-5.1) Chloride Level 99 mmol/L (98-107) Carbon Dioxide Level 26 mmol/L (21-32) Anion Gap 9 (6-14) Blood Urea Nitrogen 8 mg/dL (8-26) Creatinine 0.9 mg/dL (0.7-1.3) Estimated GFR (Cockcroft-Gault) 92.1 Glucose Level 149 mg/dL (70-99) Calcium Level 8.3 mg/dL (8.5-10.1) Magnesium Level 2.1 mg/dL (1.8-2.4) Creatine Kinase 99 U/L (39-308) Test 01/02/22 11:40 Glucose (Fingerstick) 122 mg/dL (70-99) Comment Review of Relevant I have reviewed the following items karson (where applicable) has been applied. Medications: Current Medications Medications (Trade) Dose Ordered Sig/Priti Route PRN Reason Start Time Stop Time Status Last Admin Dose Admin Sodium Chloride 1,000 ml @ 1,000 mls/hr 1X ONCE IV 01/01/22 14:30 01/01/22 15:29 DC 01/01/22 15:20 Lactobacillus Rhamnosus (Culturelle) 1 cap BID PO 01/01/22 21:00 01/02/22 08:04 Desvenlafaxine Succinate (Pristiq Er) 150 mg DAILY PO 01/01/22 16:00 01/02/22 09:24 Famotidine (Pepcid) 20 mg DAILY PO 01/01/22 16:00 01/02/22 08:05 Metformin HCl (Glucophage) 1,000 mg DAILYWBKFT PO 01/01/22 16:00 01/02/22 08:05 Metoprolol Succinate (Toprol Xl) 25 mg DAILY PO 01/01/22 16:00 01/02/22 08:06 Multivitamins (Thera M Plus) 1 tab DAILY PO 01/01/22 16:00 01/02/22 08:05 Linagliptin (Tradjenta) 5 mg DAILY PO 01/01/22 16:00 01/02/22 08:05 Atorvastatin Calcium (Lipitor) 40 mg QHS PO 01/01/22 21:00 01/01/22 20:44 Justifications for Admission Other Justification Diabetic foot ulcer JAZMINE GOODMAN MD Jan 02, 2022 13:24
--- NOTE | 2022-01-02 14:53 | PDOC ---
Infectious Disease Note Subjective: Subjective Pt had fever yesterday again at 101.6F Afebrile this morning underwent bedside I and D by vascular team yesterday as he declined amputation No further episodes of hot and cold spells Left toe pain is under control Redness of foot and toe is improving though not resolved Vital Signs: Vital Signs Vital Signs Date Time Temp Pulse Resp B/P (MAP) Pulse Ox O2 Delivery O2 Flow Rate FiO2 01/02/22 14:45 18 Room Air 01/02/22 11:00 98.9 91 150/95 (113) 96 98.9 Physical Exam: PHYSICAL EXAM GENERAL: Alert, oriented x3, pleasant male in no acute distress. HEENT: Normocephalic, atraumatic. Anicteric. No thrush. NECK: Supple, no JVD. LUNGS: Clear bilaterally. No wheezing. HEART: S1, S2. No gallops or murmurs. ABDOMEN: Soft, nontender, nondistended. GENITOURINARY: No Dutat in place. EXTREMITIES: Left foot with swelling, redness, more over the dorsal aspect of the left foot and medially with wound dressing in place intact dry not taken down. DERMATOLOGIC: Warm, dry, no generalized rash except for above. NEUROLOGIC: Alert and oriented x3, grossly nonfocal. PSYCHIATRIC: Calm and cooperative. Medications: Inpatient Meds: Medications reviewed. Labs: Lab Laboratory Tests Test 01/01/22 16:37 01/01/22 20:09 01/02/22 06:15 01/02/22 07:46 Glucose (Fingerstick) 138 mg/dL (70-99) 190 mg/dL (70-99) 150 mg/dL (70-99) White Blood Count 9.9 x10^3/uL (4.0-11.0) Red Blood Count 4.18 x10^6/uL (4.30-5.70) Hemoglobin 15.1 g/dL (13.0-17.5) Hematocrit 43.5 % (39.0-53.0) Mean Corpuscular Volume 104 fL (79-100) Mean Corpuscular Hemoglobin 36 pg (25-35) Mean Corpuscular Hemoglobin Concent 35 g/dL (31-37) Red Cell Distribution Width 12.9 % (11.5-14.5) Platelet Count 272 x10^3/uL (140-400) Neutrophils (%) (Auto) 69 % (31-73) Lymphocytes (%) (Auto) 16 % (24-48) Monocytes (%) (Auto) 12 % (0-9) Eosinophils (%) (Auto) 3 % (0-3) Basophils (%) (Auto) 0 % (0-3) Neutrophils # (Auto) 6.8 x10^3/uL (1.8-7.7) Lymphocytes # (Auto) 1.5 x10^3/uL (1.0-4.8) Monocytes # (Auto) 1.2 x10^3/uL (0.0-1.1) Eosinophils # (Auto) 0.3 x10^3/uL (0.0-0.7) Basophils # (Auto) 0.0 x10^3/uL (0.0-0.2) Sodium Level 134 mmol/L (136-145) Potassium Level 3.7 mmol/L (3.5-5.1) Chloride Level 99 mmol/L (98-107) Carbon Dioxide Level 26 mmol/L (21-32) Anion Gap 9 (6-14) Blood Urea Nitrogen 8 mg/dL (8-26) Creatinine 0.9 mg/dL (0.7-1.3) Estimated GFR (Cockcroft-Gault) 92.1 Glucose Level 149 mg/dL (70-99) Calcium Level 8.3 mg/dL (8.5-10.1) Magnesium Level 2.1 mg/dL (1.8-2.4) Creatine Kinase 99 U/L (39-308) Test 01/02/22 11:40 Glucose (Fingerstick) 122 mg/dL (70-99) Micro BC neg MRI Lt foot IMPRESSION: 1. Osteomyelitis of the great toe distal phalanx deep to a soft tissue ulcer. 2. The flexor tendon of the great toe is not well visualized and may be ruptured. Objective: Assessment: 1. 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 Left foot cellulitis. 3. Diabetes mellitus. 4. Hypertension. 5. Fever again last night 6. Obesity. Swab cultures positive for group B strep and strep mitis/paralysis Plan: Plan of Care Cont IV Zosyn and Daptomycin Pt declined amputation He is requesting trial with IV antibiotics We discussed wesley antibiotics alone may not be adequate But pt wants trial with antibiotis for now until the swelling improves and then decide on amputation per his discussion with vascular surgery Strict offload Wound care as directed Monitor labs and cultures PICC line tomorrow if blood cultures remain negative Final duration will depend on clinical response and surgery Timely administration of antibiotics could be an issue per patient as he has to be on his foot and travels long distance 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
[2022-01-02 15:00] VITALS: BP 148/97
[2022-01-02] MEDS: DAPTOMYCIN IV SCH (18:43)
[2022-01-02] MEDS: NORMAL SALINE IV SCH (18:43)
[2022-01-02 19:00] VITALS: BP 153/97
[2022-01-02] MEDS: ATORVASTATIN CALCIUM 40 MG TABLET. PO SCH (20:16)
[2022-01-02 23:00] VITALS: BP 143/97
[2022-01-03 03:00] VITALS: BP 150/93
[2022-01-03] MEDS: IV NORMAL SALINE 1000ML BAG 1,000 ML IV SCH ×2 (03:41→11:45)
[2022-01-03] MEDS: PIPERACILLIN/TAZOBACTAM 3.375 GM in IV NORMAL SALINE 50ML 50 ML IV SCH ×2 (05:34→13:16)
[2022-01-03 07:00] VITALS: BP 162/108
[2022-01-03] MEDS: MULTIVITAMIN with MINERAL TABLET. PO SCH (07:30)
[2022-01-03] MEDS: ENOXAPARIN 40 MG/0.4 ML SYRINGE. SQ SCH (07:30)
[2022-01-03] MEDS: DESVENLAFAXINE 25 MG TAB.ER.24H PO SCH (07:30)
[2022-01-03] MEDS: LACTOBACILLUS RHAMNOSUS GG 1 CAPSULE. PO SCH (07:30)
[2022-01-03] MEDS: metFORMIN 500 MG TABLET PO SCH (07:30)
[2022-01-03] MEDS: METOPROLOL SUCC 24HR ER 25 MG TAB.ER.24H. PO SCH (07:33)
[2022-01-03] MEDS: LINAGLIPTIN 5 MG TABLET PO SCH (07:35)
[2022-01-03] MEDS: FAMOTIDINE 20 MG TABLET. PO SCH (07:35)
[2022-01-03] MEDS: oxyCODONE/APAP 5/325 1 TAB TABLET PO PRN ×2 (07:36→13:18)
[2022-01-03] MEDS: INSULIN LISPRO 300 UNITS/3 ML VIAL. SQ SCH ×3 (08:00→17:00)
[2022-01-03 08:36] LABS: BASO % 0 % (0-3); EOS # 0.4 x10^3/uL (0.0-0.7); EOS % 4 % (0-3); HEMATOCRIT 44.6 % (39.0-53.0); HEMOGLOBIN 15.4 g/dL (13.0-17.5); LYMPH # 1.5 x10^3/uL (1.0-4.8); LYMPH % 15 % (24-48); MEAN CORPUSCULAR HEMOGLOBIN 36 pg (25-35); MEAN CORPUSCULAR HGB CONC 35 g/dL (31-37); MEAN CORPUSCULAR VOLUME 103 fL (79-100); MONO # 0.9 x10^3/uL (0.0-1.1); MONO % 9 % (0-9); NEUT # 7.2 x10^3/uL (1.8-7.7); NEUT % 72 % (31-73); PLATELET COUNT 350 x10^3/uL (140-400); RED BLOOD COUNT 4.35 x10^6/uL (4.30-5.70); RED CELL DISTRIBUTION WIDTH 12.9 % (11.5-14.5)
[2022-01-03 08:37] LABS: CALCIUM 8.7 mg/dL (8.5-10.1); CREATININE 0.9 mg/dL (0.7-1.3); GFR 92.1; MAGNESIUM 2.2 mg/dL (1.8-2.4); POTASSIUM 3.6 mmol/L (3.5-5.1)
[2022-01-03 11:00] VITALS: BP 145/97
--- NOTE | 2022-01-03 11:15 | PDOC ---
[facility] PROGRESS NOTE Date of Service DOS: DATE: 01/03/22 TIME: 11:13 Chief Complaint Chief Complaint Left first digit diabetic foot ulcer Macrocytosis Acute electrolyte derangement suggestive of volume depletion History of diabetes mellitus type 2 History of hypertension History of Present Illness History of Present Illness 01/01/2022: Patient seen and evaluated bedside. MRI showed osteomyelitis of the great toe distal phalanx deep to a soft tissue ulcer. Reports pain in his left big toe, likely due to recent debridement. He is opting to defer surgery and proceed with antibiotics and wound care. Vascular surgery has signed off. WBC 11.1 today. Hemoglobin A1c pending. Continue with IV antibiotics, per ID. Discussed with patient, likely 6 weeks IV antibiotics and transition to oral antibiotics after that. 01/02: Patient seen and evaluated. White count within normal limits. No growth on blood culture today. His wound culture is growing mixed aerobic gwen, many group B strep, moderate strep mitis/oralis. Will await for sensitivities. Blood sugar well controlled. Continue IV antibiotics, per ID. Pain controlled with oral medication. He will need a PICC line prior to discharge. 01/03: Afebrile. Currently receiving PICC line per IR. Awaiting sensitivities. Once resulted he can d/c home with antibiotics, per ID. This may happen today or at latest tomorrow. Vitals/I&O Vitals/I&O: Vital Signs Date Time Temp Pulse Resp B/P (MAP) Pulse Ox O2 Delivery O2 Flow Rate FiO2 01/03/22 07:36 17 Room Air 01/03/22 07:33 98 162/108 01/03/22 07:00 99.1 98 99.1 I & O 01/02/22 01/02/22 01/03/22 15:00 23:00 07:00 Intake Total 240 ml 340 ml Balance 240 ml 340 ml Physical Exam Physical Exam: GENERAL: Alert, oriented x3, pleasant male in no acute distress. HEENT: Normocephalic, atraumatic. Anicteric. No thrush. NECK: Supple, no JVD. LUNGS: Clear bilaterally. No wheezing. HEART: S1, S2. No gallops or murmurs. ABDOMEN: Soft, nontender, nondistended. GENITOURINARY: No Dutta in place. EXTREMITIES: Left foot with swelling, redness, more over the dorsal aspect of the left foot and medially with wound dressing in place intact dry not taken down. DERMATOLOGIC: Warm, dry, no generalized rash except for above. NEUROLOGIC: Alert and oriented x3, grossly nonfocal. PSYCHIATRIC: Calm and cooperative. General: Alert, Oriented X3, Cooperative, No acute distress Heart: Regular rate Lungs: Clear Abdomen: Normal bowel sounds, Soft Extremities: Normal pulses (Normal DP and PT bilaterally. ), Other (No right foot wounds or erythema. Left foot with ecchymosis to nail bed of second toe, no drianage. First toe with distal part all macerated circumferentially with boggy tissue medially and plantar ulcer with clean wound bed on plantar surface. There is no drainage extracted. Attempted to probe ulcer and under nail bed but this was too painful for pt and not tolerated. There is no fluctuance or draiange, there is erythema extending to forefoot. He has 1+swelling RLE) Skin: Other (L great toe wound as in described above. ) Labs Labs: Laboratory Tests Test 01/02/22 11:40 01/02/22 16:57 01/02/22 20:35 01/03/22 06:55 Glucose (Fingerstick) 122 mg/dL (70-99) 130 mg/dL (70-99) 170 mg/dL (70-99) White Blood Count 10.0 x10^3/uL (4.0-11.0) Red Blood Count 4.35 x10^6/uL (4.30-5.70) Hemoglobin 15.4 g/dL (13.0-17.5) Hematocrit 44.6 % (39.0-53.0) Mean Corpuscular Volume 103 fL (79-100) Mean Corpuscular Hemoglobin 36 pg (25-35) Mean Corpuscular Hemoglobin Concent 35 g/dL (31-37) Red Cell Distribution Width 12.9 % (11.5-14.5) Platelet Count 350 x10^3/uL (140-400) Neutrophils (%) (Auto) 72 % (31-73) Lymphocytes (%) (Auto) 15 % (24-48) Monocytes (%) (Auto) 9 % (0-9) Eosinophils (%) (Auto) 4 % (0-3) Basophils (%) (Auto) 0 % (0-3) Neutrophils # (Auto) 7.2 x10^3/uL (1.8-7.7) Lymphocytes # (Auto) 1.5 x10^3/uL (1.0-4.8) Monocytes # (Auto) 0.9 x10^3/uL (0.0-1.1) Eosinophils # (Auto) 0.4 x10^3/uL (0.0-0.7) Basophils # (Auto) 0.0 x10^3/uL (0.0-0.2) Sodium Level 136 mmol/L (136-145) Potassium Level 3.6 mmol/L (3.5-5.1) Chloride Level 100 mmol/L (98-107) Carbon Dioxide Level 27 mmol/L (21-32) Anion Gap 9 (6-14) Blood Urea Nitrogen 6 mg/dL (8-26) Creatinine 0.9 mg/dL (0.7-1.3) Estimated GFR (Cockcroft-Gault) 92.1 Glucose Level 146 mg/dL (70-99) Calcium Level 8.7 mg/dL (8.5-10.1) Magnesium Level 2.2 mg/dL (1.8-2.4) Test 01/03/22 08:33 Glucose (Fingerstick) 158 mg/dL (70-99) Comment Review of Relevant I have reviewed the following items karson (where applicable) has been applied. Justifications for Admission Other Justification Diabetic foot ulcer JAZMINE GOODMAN MD Jan 03, 2022 11:15
--- NOTE | 2022-01-03 12:06 | NUR ---
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
--- NOTE | 2022-01-03 12:15 | NUR ---
Procedure: Following complete explanation of the PICC procedure including the indications, risks, and potential complications, informed consent was obtained. The possibility for infection was discussed along with signs, symptoms, and prevention. All the all questions were answered. Written and verbal patient education was provided. yes Hand hygiene performed. yes Standardized central line checklist was utilized. yes The patient was placed in the supine position, the arm was prepped with chlorhexidine and patient draped with maximum sterile barrier. 4 mL 1% lidocaine was infiltrated into the skin to provide local anesthesia. A thorough assessment of left upper extremity completed. Using real-time ultrasound guidance and standardized micro puncture set, the basilic vein was punctured and a peel away sheath was placed using the modified Seldinger technique. A tip location device was used to ensure adequate catheter placement. The catheter was secured using a securement device and an antimicrobial patch was applied directly on the insertion site followed by a transparent dressing. All ports withdraw blood and flush without resistance. Patient tolerated the procedure without apparent complication(s). singe Lumen Power PICC placement successful and uncomplicated. Placement verified by chest x-ray. Tip located in the CAJ Complications: none CARLOS ALBERTO RN Addendum: 01/03/22 at 1217 by NATHANIEL KAUR RN Amended: Links added. Addendum: 01/03/22 at 1645 by NATHANIEL KAUR RN CXR confirmed PICC was not long enough to be used, PICC then replaced by REYMUNDO MORALES without difficulty. CARLOS ALBERTO LUTHER
--- NOTE | 2022-01-03 12:27 | RAD ---
XR CHEST 1V History: Reason: picc placement / Spl. Instructions: / History: Comparison: March 05, 2021 Findings: Interval placement left PICC with tip likely within the region of the upper SVC although not well izaiah racterized due to technique. Mild multifocal ill-defined opacities. No pleural effusion. No pneumotho rax. Normal heart size. Impression: 1. Mild multifocal ill-defined opacities, may represent atelectasis or developing infiltrates. If pe rsistent clinical concern, recommend follow-up. 2. Interval placement left PICC with tip likely in the region of the upper SVC although not well izaiah racterized due to technique. Electronically signed by: Luisito Montelongo DO (01/03/2022 12:25 PM) [id number]
[2022-01-03] MEDS ORDERED: LIDOCAINE WITH 8.4% SOD BICARB 3 ML DISP.SYRIN. ONE (12:37)
--- NOTE | 2022-01-03 13:57 | PDOC ---
Infectious Disease Note Subjective Subjective Patient is feeling good No complaints wants to get out ROS ROS No nausea vomiting diarrhea chest pain shortness of breath or fever Vital Sign Vital Signs Vital Signs Date Time Temp Pulse Resp B/P (MAP) Pulse Ox O2 Delivery O2 Flow Rate FiO2 01/03/22 13:18 18 Room Air 01/03/22 11:00 99.1 88 145/97 (113) 96 99.1 Physical Exam PHYSICAL EXAM GENERAL: Alert, oriented x3, pleasant male in no acute distress. HEENT: Normocephalic, atraumatic. Anicteric. No thrush. NECK: Supple, no JVD. LUNGS: Clear bilaterally. No wheezing. HEART: S1, S2. No gallops or murmurs. ABDOMEN: Soft, nontender, nondistended. GENITOURINARY: No Dutta in place. EXTREMITIES: Left foot with swelling, redness, more over the dorsal aspect of the left foot and medially with wound dressing in place intact dry not taken down. DERMATOLOGIC: Warm, dry, no generalized rash except for above. NEUROLOGIC: Alert and oriented x3, grossly nonfocal. PSYCHIATRIC: Calm and cooperative. Labs Lab Laboratory Tests Test 01/02/22 16:57 01/02/22 20:35 01/03/22 06:55 01/03/22 08:33 Glucose (Fingerstick) 130 mg/dL (70-99) 170 mg/dL (70-99) 158 mg/dL (70-99) White Blood Count 10.0 x10^3/uL (4.0-11.0) Red Blood Count 4.35 x10^6/uL (4.30-5.70) Hemoglobin 15.4 g/dL (13.0-17.5) Hematocrit 44.6 % (39.0-53.0) Mean Corpuscular Volume 103 fL (79-100) Mean Corpuscular Hemoglobin 36 pg (25-35) Mean Corpuscular Hemoglobin Concent 35 g/dL (31-37) Red Cell Distribution Width 12.9 % (11.5-14.5) Platelet Count 350 x10^3/uL (140-400) Neutrophils (%) (Auto) 72 % (31-73) Lymphocytes (%) (Auto) 15 % (24-48) Monocytes (%) (Auto) 9 % (0-9) Eosinophils (%) (Auto) 4 % (0-3) Basophils (%) (Auto) 0 % (0-3) Neutrophils # (Auto) 7.2 x10^3/uL (1.8-7.7) Lymphocytes # (Auto) 1.5 x10^3/uL (1.0-4.8) Monocytes # (Auto) 0.9 x10^3/uL (0.0-1.1) Eosinophils # (Auto) 0.4 x10^3/uL (0.0-0.7) Basophils # (Auto) 0.0 x10^3/uL (0.0-0.2) Sodium Level 136 mmol/L (136-145) Potassium Level 3.6 mmol/L (3.5-5.1) Chloride Level 100 mmol/L (98-107) Carbon Dioxide Level 27 mmol/L (21-32) Anion Gap 9 (6-14) Blood Urea Nitrogen 6 mg/dL (8-26) Creatinine 0.9 mg/dL (0.7-1.3) Estimated GFR (Cockcroft-Gault) 92.1 Glucose Level 146 mg/dL (70-99) Calcium Level 8.7 mg/dL (8.5-10.1) Magnesium Level 2.2 mg/dL (1.8-2.4) Test 01/03/22 12:10 Glucose (Fingerstick) 142 mg/dL (70-99) Micro Microbiology 01/01/22 Gram Stain - Final, Resulted 01/01/22 Aerobic and Anaerobic Culture - Preliminary, Resulted Streptococcus Mitis/Oralis Grp Enterococcus Faecalis Prevotella Bivia Beta Strep Group B Staphylococcus Aureus 12/31/21 Blood Culture - Preliminary, Resulted NO GROWTH AFTER 2 DAYS Objective Assessment 1. 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 Left foot cellulitis. 3. Diabetes mellitus. 4. Hypertension. 5. Fever again last night 6. Obesity. Plan Plan of Care Pt declined amputation He is requesting trial with IV antibiotics We discussed wesley antibiotics alone may not be adequate But pt wants trial with antibiotis for now until the swelling improves and then decide on amputation per his discussion with vascular surgery Strict offload Wound care as directed Monitor labs and cultures PICC line Final duration will depend on clinical response and surgery Discussed with RN Will be able to discharge patient on daptomycin and Invanz Susceptibilities are pending I did discuss with the lab to finalize at least for MRSA Discussed with Dr. Edouard in detail ,, likely he will lose the toe but he wants to try it and and certainly will give it a shot Probiotics advised Follow-up with me in 2 weeks TONYA ORLANDO MD Jan 03, 2022 13:57
--- NOTE | 2022-01-03 14:20 | NUR ---
SS received script for IV antibiotics for home infusions. Script and referral sent to [facility], ; fax [phone], [place], ; fax [phone], and [facility] [phone]; fax [phone]. Currently awaiting benefits at this time. Addendum: 01/03/22 at 1432 by STEPHANIA BARBA SS RN notified SS to set up pt as outpatient at this time. SS contacted ER [id number]; fax [phone], and requested time for outpatient infusion tomorrow, 01/04/2022. SS was notified that pt needs to come through the ER tomorrow at 0900 for infusion. Pt's RN notified.
[2022-01-03 15:00] VITALS: BP 143/99
[2022-01-03] MEDS ORDERED: ERTAPENEM 1 GM in IV NORMAL SALINE 50ML 50 ML IV ONE (15:00)
--- NOTE | 2022-01-03 15:04 | RAD ---
Date: 01/03/2022 Exam: Fluoroscopically guided replacement left upper extremity PICC line Indication: Consent: The procedure was explained in its entirety to the patient or the patients designated repres entative by a member of the treatment team, including a discussion of the risks, benefits and commonl y accepted alternatives to the procedure, as well as the expected consequences of no therapy whatsoev er. Discussion of the risks included, but was not limited to, those that are most frequent and thos e that are rare but possibly severe or life-threatening, as well as the possibility of unforeseen com plications. Discussion: A timeout procedure was performed. The patient was prepped and draped using maximum sterile techniq ue, including the use of: Current guideline approved cutaneous antisepsis, a large sterile sheet to e stablish a sterile field. Additionally the electric truck operator wore a hat, mask, sterile gloves, a sterile gown during the procedure as well as practiced acceptable hand hygiene prior to placing the line. 1% lidoc beth was administered for local anesthesia. The pre-existing PICC line was found to terminate have its tip projecting over the superior mediastin um.. A guidewire was advanced through the line into the IVC. The new PICC line was advanced over the wire and positioned such that the catheter tip was in the cavoatrial junction. The new catheter was s ecured in place and sterile dressings were applied. No immediate complications were identified. Total fluoroscopy time: 1 minute Dose area product 7 Mitchell centimeter squared IMPRESSION: Replacement of left upper extremity PICC line over a guidewire Electronically signed by: Max Montes MD (01/03/2022 3:02 PM) [id number]
--- NOTE | 2022-01-03 15:04 | NUR ---
Wound Care Wound Type/Assessment: Follow up with pt following bedside debridement with Jeanna MONREAL with vascular. Pt L great and second toes are swollen and indurated with redness extending beyond the front half of the dorsal forefoot; reduced from karson made on Thursday but still present. Distal tip of great toe is macerated, fluctuant, and edematous. Periwound is red, swollen and macerated. Plantar toe Wound base is slough covered with a small central opening reaching 0.3cm in depth and probes to bone under great toe nail. Unable to determine if any undermining or tunnels exist due to pain on exam Treatment Recommendations/Plan: L great toe: Cover with ioplex and drawtex then cover with foam and tape. Change every day. No pressure to wound at any time. Wear offloading shoe for any ambulation. Heel touch only. Recommend walker Education provided: DM II management and wound healing. Offloading surface/device: Pt is independent with mobility. Recommended Referrals/Tests: Continue treatment with ID and vascular surgery. Discharge Recommendations for dressings: As above. Follow up in [facility] 01/07 at 0730
[2022-01-03] MEDS ORDERED: ATOR40TA59 PO (15:48)
--- NOTE | 2022-01-03 15:55 | PDOC3 ---
Discharge Summary Visit Information Date of Admission: Dec 31, 2021 Date of Discharge: Jan 03, 2022 Brief Hospital Course Allergies Allergies Coded Allergies Type Severity Reaction Last Updated Verified Sulfa (Sulfonamide Antibiotics) Allergy Intermediate 03/05/21 Yes Vital Signs Vital Signs Date Time Temp Pulse Resp B/P (MAP) Pulse Ox O2 Delivery O2 Flow Rate FiO2 01/03/22 13:18 18 Room Air 01/03/22 11:00 99.1 88 145/97 (113) 96 99.1 Lab Results Laboratory Tests Test 01/01/22 16:37 01/01/22 20:09 01/02/22 06:15 01/02/22 07:46 Glucose (Fingerstick) 138 mg/dL (70-99) 190 mg/dL (70-99) 150 mg/dL (70-99) White Blood Count 9.9 x10^3/uL (4.0-11.0) Red Blood Count 4.18 x10^6/uL (4.30-5.70) Hemoglobin 15.1 g/dL (13.0-17.5) Hematocrit 43.5 % (39.0-53.0) Mean Corpuscular Volume 104 fL (79-100) Mean Corpuscular Hemoglobin 36 pg (25-35) Mean Corpuscular Hemoglobin Concent 35 g/dL (31-37) Red Cell Distribution Width 12.9 % (11.5-14.5) Platelet Count 272 x10^3/uL (140-400) Neutrophils (%) (Auto) 69 % (31-73) Lymphocytes (%) (Auto) 16 % (24-48) Monocytes (%) (Auto) 12 % (0-9) Eosinophils (%) (Auto) 3 % (0-3) Basophils (%) (Auto) 0 % (0-3) Neutrophils # (Auto) 6.8 x10^3/uL (1.8-7.7) Lymphocytes # (Auto) 1.5 x10^3/uL (1.0-4.8) Monocytes # (Auto) 1.2 x10^3/uL (0.0-1.1) Eosinophils # (Auto) 0.3 x10^3/uL (0.0-0.7) Basophils # (Auto) 0.0 x10^3/uL (0.0-0.2) Sodium Level 134 mmol/L (136-145) Potassium Level 3.7 mmol/L (3.5-5.1) Chloride Level 99 mmol/L (98-107) Carbon Dioxide Level 26 mmol/L (21-32) Anion Gap 9 (6-14) Blood Urea Nitrogen 8 mg/dL (8-26) Creatinine 0.9 mg/dL (0.7-1.3) Estimated GFR (Cockcroft-Gault) 92.1 Glucose Level 149 mg/dL (70-99) Calcium Level 8.3 mg/dL (8.5-10.1) Magnesium Level 2.1 mg/dL (1.8-2.4) Creatine Kinase 99 U/L (39-308) Test 01/02/22 11:40 01/02/22 16:57 01/02/22 20:35 01/03/22 06:55 Glucose (Fingerstick) 122 mg/dL (70-99) 130 mg/dL (70-99) 170 mg/dL (70-99) White Blood Count 10.0 x10^3/uL (4.0-11.0) Red Blood Count 4.35 x10^6/uL (4.30-5.70) Hemoglobin 15.4 g/dL (13.0-17.5) Hematocrit 44.6 % (39.0-53.0) Mean Corpuscular Volume 103 fL (79-100) Mean Corpuscular Hemoglobin 36 pg (25-35) Mean Corpuscular Hemoglobin Concent 35 g/dL (31-37) Red Cell Distribution Width 12.9 % (11.5-14.5) Platelet Count 350 x10^3/uL (140-400) Neutrophils (%) (Auto) 72 % (31-73) Lymphocytes (%) (Auto) 15 % (24-48) Monocytes (%) (Auto) 9 % (0-9) Eosinophils (%) (Auto) 4 % (0-3) Basophils (%) (Auto) 0 % (0-3) Neutrophils # (Auto) 7.2 x10^3/uL (1.8-7.7) Lymphocytes # (Auto) 1.5 x10^3/uL (1.0-4.8) Monocytes # (Auto) 0.9 x10^3/uL (0.0-1.1) Eosinophils # (Auto) 0.4 x10^3/uL (0.0-0.7) Basophils # (Auto) 0.0 x10^3/uL (0.0-0.2) Sodium Level 136 mmol/L (136-145) Potassium Level 3.6 mmol/L (3.5-5.1) Chloride Level 100 mmol/L (98-107) Carbon Dioxide Level 27 mmol/L (21-32) Anion Gap 9 (6-14) Blood Urea Nitrogen 6 mg/dL (8-26) Creatinine 0.9 mg/dL (0.7-1.3) Estimated GFR (Cockcroft-Gault) 92.1 Glucose Level 146 mg/dL (70-99) Calcium Level 8.7 mg/dL (8.5-10.1) Magnesium Level 2.2 mg/dL (1.8-2.4) Test 01/03/22 08:33 01/03/22 12:10 Glucose (Fingerstick) 158 mg/dL (70-99) 142 mg/dL (70-99) Laboratory Tests Test 01/02/22 16:57 01/02/22 20:35 01/03/22 06:55 01/03/22 08:33 Glucose (Fingerstick) 130 mg/dL (70-99) 170 mg/dL (70-99) 158 mg/dL (70-99) White Blood Count 10.0 x10^3/uL (4.0-11.0) Red Blood Count 4.35 x10^6/uL (4.30-5.70) Hemoglobin 15.4 g/dL (13.0-17.5) Hematocrit 44.6 % (39.0-53.0) Mean Corpuscular Volume 103 fL (79-100) Mean Corpuscular Hemoglobin 36 pg (25-35) Mean Corpuscular Hemoglobin Concent 35 g/dL (31-37) Red Cell Distribution Width 12.9 % (11.5-14.5) Platelet Count 350 x10^3/uL (140-400) Neutrophils (%) (Auto) 72 % (31-73) Lymphocytes (%) (Auto) 15 % (24-48) Monocytes (%) (Auto) 9 % (0-9) Eosinophils (%) (Auto) 4 % (0-3) Basophils (%) (Auto) 0 % (0-3) Neutrophils # (Auto) 7.2 x10^3/uL (1.8-7.7) Lymphocytes # (Auto) 1.5 x10^3/uL (1.0-4.8) Monocytes # (Auto) 0.9 x10^3/uL (0.0-1.1) Eosinophils # (Auto) 0.4 x10^3/uL (0.0-0.7) Basophils # (Auto) 0.0 x10^3/uL (0.0-0.2) Sodium Level 136 mmol/L (136-145) Potassium Level 3.6 mmol/L (3.5-5.1) Chloride Level 100 mmol/L (98-107) Carbon Dioxide Level 27 mmol/L (21-32) Anion Gap 9 (6-14) Blood Urea Nitrogen 6 mg/dL (8-26) Creatinine 0.9 mg/dL (0.7-1.3) Estimated GFR (Cockcroft-Gault) 92.1 Glucose Level 146 mg/dL (70-99) Calcium Level 8.7 mg/dL (8.5-10.1) Magnesium Level 2.2 mg/dL (1.8-2.4) Test 01/03/22 12:10 Glucose (Fingerstick) 142 mg/dL (70-99) Brief Hospital Course Mr. Edouard is a 41 old male who presented with osteomyelitis left 1st toe. Consultation placed to ID and Ortho. Her deferred amputation, in darrel of chcf antibiotics. Treated with IV antibiotics, per ID. PICC line placed. When wound culture susceptibilities returned, he was stable to discharge with outpatient IV antibiotics and ID f/u. Discharge Information Condition at Discharge: Stable Disposition/Orders: D/C to Home Scheduled Amlodipine Besylate (Amlodipine Besylate) 10 Mg Tablet, 10 MG PO DAILY, (Reported) Entered as Reported by: MAY SOTO RPH on 01/01/221102 Last Action: New Order on 01/01/221102 by MAY SOTO RPH Desvenlafaxine Succinate (Pristiq Er) 50 Mg Tab.er.24h, 150 MG PO DAILY for depression, #30 Ref 5 (Reported) Entered as Reported by: AR FONSECA on 12/31/211937 Last Taken: 150 mg daily on Unknown Date & Time Last Action: Edited on 01/01/22 1103 by MAY SOTO [facility] Famotidine (Pepcid) 20 Mg Tablet, 20 MG PO DAILY for gerd, (Reported) Entered as Reported by: AR FONSECA on 12/31/211937 Last Taken: 20mg daily on Unknown Date & Time Last Action: New Order on 12/31/211937 by AR FONSECA Metformin Hcl (Metformin Hcl) 1,000 Mg Tablet, 1,000 MG PO [id number] for ANTI- DIABETIC, Ref 0 (Reported) Entered as Reported by: AR FONSECA on 12/31/211937 Last Taken: 1000mg daily on Unknown Date & Time Last Action: New Order on 12/31/211937 by AR FONSECA Metoprolol Succinate (Metoprolol Succinate ( Xl )) 25 Mg Tab.er.24h, 1 TAB PO DAILY for htn, #30 Ref 5 (Reported) Entered as Reported by: AR FONSECA on 12/31/211937 Last Taken: 25mg daily on Unknown Date & Time Last Action: New Order on 12/31/211937 by AR FONSECA Multivitamin (One-Daily Multi-Vitamin) 1 Each Tablet, 1 TAB PO DAILY for nu ttrition for 30 Days, #30 Ref 0 (Reported) Entered as Reported by: AR FONSECA on 12/31/211937 Last Taken: 1 tab daily on Unknown Date & Time Last Action: New Order on 12/31/211937 by AR FONSECA Sitagliptin Phosphate (Januvia) 100 Mg Tablet, 1 TAB PO DAILY for diabetes, #30 Ref 5 (Reported) Entered as Reported by: AR FONSECA on 12/31/211937 Last Taken: 100mg daily on Unknown Date & Time Last Action: New Order on 12/31/211937 by AR FONSECA Scheduled PRN Alprazolam (Xanax) 0.5 Mg Tablet, 1 TAB PO DAILY PRN for ANXIETY, #30 (Reported) Entered as Reported by: AR FONSECA on 12/31/21 1009 Last Taken: 0.5-1mg on Unknown Date & Time Last Action: New Order on 12/31/21 1009 by AR FONSECA Discontinued Medications Amlodipine Besylate (Amlodipine Besylate) 10 Mg Tablet, 10 MG PO HS for 30 Days, #30 Ref 1 Discontinued Reason: CHANING SI Prescribed by: BERNADETTE RANDOLPH APRN on 03/05/21 1300 Last Action: Discontinued on 01/01/22 1103 by MAY SOTO RPH Info (No Known Medications Prior To Admisstion) Each, 1 EACH , (Reported) Discontinued Reason: D/C Entered as Reported by: DESTINY HURD on 03/21/16 1406 Last Action: Discontinued on 01/01/221102 by MAY SOTO RPH Justicifation of Admission Dx: Justifications for Admission: Justification of Admission Dx: Yes JAZMINE GOODMAN MD Jan 03, 2022 15:55
[2022-01-03] MEDS ORDERED: OXYC1TAB15 PO (16:02)
[2022-01-03] MEDS: NORMAL SALINE IV SCH (16:26)
[2022-01-03] MEDS: DAPTOMYCIN IV SCH (16:26)
--- NOTE | 2022-01-03 19:38 | NUR ---
Discharge note: Patient discharged home with self care accompanied by significant other. Patient discharged home with wound care supplies and significant other has been educated with printed instructions and by the JONATHAN nurse how to change dressing. SL PICC line placed today by IR in Left upper arm. Patient has been scheduled and set up to be at ER at 0900 on Thursday 01/04 for antibiotic infusions, patient and sig other verbalized understanding, to also follow up with outpatient on Thursday for outpatient abx infusions until home abx infusions are figured out or further outpatient abx treatment. Patient given the number and the weekly cost of [facility] 24 hour pharmacy, to arrange for delivery if able to afford. [facility] spoke directly with this RN this RN relayed the information for setting and arranging for further services if patient is able to. Patient is to follow up with wound care on Thursday, he has also been given script for abx and weekly lab draws which has been copied and put in chart. Patient and significant other verbalized understanding. Patient's dressing CD&I, which was changed and picture was taken by JONATHAN.
== END 2022-01-03 18:15 | disposition home or self-care (01) | DRG 854 ==
LOC: 2 NORTH 09:12
PROVIDERS: ADMIT Internal Medicine; ATTEND Internal Medicine
PROC: 5A09357 Assistance with Respiratory Ventilation, Less than 24 Consecutive Hours, Continuous Positive Airway Pressure (ICD-10-PCS; 2021-12-31)
PROC: 0JBR0ZZ Excision of Left Foot Subcutaneous Tissue and Fascia, Open Approach (ICD-10-PCS; 2022-01-01)
PROC: 5A09357 Assistance with Respiratory Ventilation, Less than 24 Consecutive Hours, Continuous Positive Airway Pressure (ICD-10-PCS; 2022-01-01)
PROC: 0HBRXZZ Excision of Toe Nail, External Approach (ICD-10-PCS; 2022-01-01)
PROC: 02HV33Z Insertion of Infusion Device into Superior Vena Cava, Percutaneous Approach (ICD-10-PCS; principal; 2022-01-02)
PROC: B548ZZA Ultrasonography of Superior Vena Cava, Guidance (ICD-10-PCS; 2022-01-02)
PROC: B5181ZA Fluoroscopy of Superior Vena Cava using Low Osmolar Contrast, Guidance (ICD-10-PCS; 2022-01-02)
DX: A41.9 Sepsis, unspecified organism (principal); L03.116 Cellulitis of left lower limb; Z68.42 Body mass index [BMI] 45.0-49.9, adult; M86.8X7 Other osteomyelitis, ankle and foot; E11.69 Type 2 diabetes mellitus with other specified complication; Z88.2 Allergy status to sulfonamides; D75.89 Other specified diseases of blood and blood-forming organs; E11.51 Type 2 diabetes mellitus with diabetic peripheral angiopathy without gangrene; E11.621 Type 2 diabetes mellitus with foot ulcer; E11.65 Type 2 diabetes mellitus with hyperglycemia; E66.01 Morbid (severe) obesity due to excess calories; F32.A Depression, unspecified; G83.9 Paralytic syndrome, unspecified; I10 Essential (primary) hypertension; K21.9 Gastro-esophageal reflux disease without esophagitis; L97.519 Non-pressure chronic ulcer of other part of right foot with unspecified severity; L97.529 Non-pressure chronic ulcer of other part of left foot with unspecified severity; Z79.2 Long term (current) use of antibiotics; Z79.84 Long term (current) use of oral hypoglycemic drugs; B95.2 Enterococcus as the cause of diseases classified elsewhere; B95.4 Other streptococcus as the cause of diseases classified elsewhere; B95.61 Methicillin susceptible Staphylococcus aureus infection as the cause of diseases classified elsewhere; B95.1 Streptococcus, group B, as the cause of diseases classified elsewhere; Z79.4 Long term (current) use of insulin
CPT/HCPCS: 36415; 36569; 36584; 71045; 73720; 80048; 80061; 82550; 82607; 82962; 83036; 83735; 84100; 85007; 85025; 85651; 86140; 87040; 87075; 87076; 87077; 87186; 94660; A9575; C1751; J0878; J1335; J1650; J1815; J2270; J2543; J7030; G0378